=== PATIENT | male | born 1945 | race Caucasian/White ===

== ENCOUNTER 2022-05-13 07:47 | Emergency (ER) | payer MEDICARE ==
[~2022-05-13] VITALS: Ht 175.3 cm; Wt 80.3 kg
[2022-05-13] MEDS ORDERED: Prozac40 MG PO (08:32)
[2022-05-13] MEDS ORDERED: Lisinopril2.5 MG PO (08:32)
[2022-05-13 08:59] LABS: BASOPHILS ABSOLUTE AUTO 0.03 K/mm3 (0.00-0.23); BASOPHILS PERCENT AUTO 0 % (0-2); EOSINOPHILS ABSOLUTE AUTO 0.04 K/mm3 (0.00-0.68); EOSINOPHILS PERCENT AUTO 0 % (0-6); Hematocrit 44.2 % (37.0-53.0); Hemoglobin 14.6 g/dL (13.5-17.5); IMMATURE GRAN ABSOLUTE AUTO 0.04 K/mm3 (0.00-0.10); IMMATURE GRAN PERCENT AUTO 0 % (0-1); LYMPHOCYTES ABSOLUTE AUTO 0.77 K/mm3 (0.84-5.20); LYMPHOCYTES PERCENT AUTO 7 % (21-46); MONOCYTES ABSOLUTE AUTO 0.49 K/mm3 (0.16-1.47); MONOCYTES PERCENT AUTO 4 % (4-13); Mean Corpuscular HGB 31.9 pg (26.0-34.0); Mean Corpuscular Volume 97 fL (80-100); Mean Platelet Volume 10.4 fL (9.1-12.4); NEUTROPHILS PERCENT AUTO 88 % (41-73); Platelet Count 187 K/mm3 (150-400); RDW Coefficient Variation 13.2 % (11.7-14.2); RDW Standard Deviation 47.1 fL (35.1-46.3); Red Blood Cell Count 4.58 M/mm3 (4.30-5.90); White Blood Cell Count 11.27 K/mm3 (4.00-11.30)
[2022-05-13 09:23] LABS: Albumin, Blood 4.2 g/dL (3.4-5.0); Albumin/Globulin Ratio 1.1 (0.8-1.8); Bilirubin, Total 0.3 mg/dL (0.1-1.0); Bun/Creatinine Ratio 19.8 (12.0-20.0); Calcium, Blood 9.9 mg/dL (8.5-10.1); Creatinine, Blood 1.77 mg/dL (0.60-1.20); Globulin, Blood 3.8 g/dL (2.2-4.0); Potassium, Blood 4.9 mmol/L (3.5-5.5)
[2022-05-13 09:54] LABS: Source, Urine Clean Catch
[2022-05-13 09:58] LABS: Appearance, Urine Clear (Clear); Bilirubin, Urine Neg (Neg); Blood, Urine Neg (Neg); Color, Urine Yellow (P-Yellow); Glucose Qualitative, Urine Neg (Neg); Ketones, Urine Neg (Neg); Leukocyte Esterase, Urine Neg (Neg); Nitrite, Urine Neg (Neg); Protein, Urine 1+ (Neg); Urobilinogen, Urine NORM (Normal)
== END 2022-05-13 11:18 | disposition home or self-care (01) ==
LOC: ER 07:47
PROVIDERS: Physician Assistant
DX: K59.00 Constipation, unspecified (principal); I10 Essential (primary) hypertension; F32.A Depression, unspecified; Z79.899 Other long term (current) drug therapy; Z98.84 Bariatric surgery status
CPT/HCPCS: 74177; 80053; 83690; 85025; A9270; Q9967

== ENCOUNTER → 2024-04-10 | Outpatient (CLI) | payer OTHER ==
[~2024-04-10] MED LIST: Lisinopril2.5 MG PO; Prozac40 MG PO
[2024-04-10 11:51] LABS: Source, Urine Clean Catch
[2024-04-10 12:01] LABS: Appearance, Urine Clear (Clear); Bilirubin, Urine Neg (Neg); Blood, Urine Neg (Neg); Color, Urine Yellow (P-Yellow); Glucose Qualitative, Urine Neg (Normal); Ketones, Urine Neg (Neg); Leukocyte Esterase, Urine Neg (Neg); Nitrite, Urine Neg (Neg); Protein, Urine Trace (Neg); Urobilinogen, Urine NORM (Normal)
[2024-04-10 12:31] LABS: Albumin, Blood 3.6 g/dL (3.4-5.0); Anion Gap 17 mmol/L (6-16); Blood Urea Nitrogen 33 mg/dL (8-24); Bun/Creatinine Ratio 12.6 (12.0-20.0); CO2, Blood 19 mmol/L (21-32); Chloride, Blood 108 mmol/L (98-108); Creatinine, Blood 2.61 mg/dL (0.60-1.20); Glomerular Filtration Rate 24 (60-); Glucose, Blood 91 mg/dL (70-99); Phosphorus, Blood 3.7 mg/dL (2.5-4.9); Potassium, Blood 4.3 mmol/L (3.5-5.5); Sodium, Blood 140 mmol/L (136-145)
== END ==
LOC: LAB SHORT 11:49 → LAB 11:49
PROVIDERS: Hospitalist
DX: N18.32 Chronic kidney disease, stage 3b (principal)
CPT/HCPCS: 36415; 80069

== ENCOUNTER 2024-12-10 18:28 | Inpatient (IN) | payer OTHER ==
[~2024-12-10] VITALS: Ht 177.8 cm; Wt 68.0 kg
[2024-12-10] MEDS ORDERED: PRED FORTE5 M1 LEFTEYE (19:54)
[2024-12-10] MEDS ORDERED: CALCIUM GLUC IN NACL, ISO-OSM 100 ML IV ONE (19:55)
[2024-12-10] MEDS ORDERED: Sodium Bicarb 8.4% Inj 150 MEQ in Dextrose 5% 1,000 ML IV SCH ×2 (20:05→22:55)
[2024-12-10 20:21] LABS: Base Excess Venous -27.4 mmol/L; Bicarbonate Venous 6.6 mmol/L (24.0-30.0); PCO2 Venous 15.8 mmHg (38-42)
[2024-12-10] MEDS ORDERED: Sodium Zirconium Cyclosilicate 10 GM Packet PO ONE (20:40)
[2024-12-10] MEDS ORDERED: Dextrose 50% 50 ML Syringe IV ONE (20:40)
[2024-12-10] MEDS ORDERED: Dextrose 50% 50 ML Vial IV ONE (20:45)
[2024-12-10] MEDS ORDERED: Insulin Regular 100 Unit/ML 1ML Dose IV ONE (20:45)
[2024-12-10] MEDS ORDERED: Lidocaine 2% Jelly Uro-Jet UR ONE (21:00)
[2024-12-10] MEDS ORDERED: FentaNYL Citrate 50 MCG/ML 2 ML Injection IV ONE (21:00)
[2024-12-10 21:03] LABS: Bun/Creatinine Ratio 10.9 (12.0-20.0); Calcium, Blood 7.6 mg/dL (8.5-10.1); Creatinine, Blood 14.7 mg/dL (0.60-1.20); Potassium, Blood 7.1 mmol/L (3.5-5.5)
[2024-12-10] MEDS ORDERED: FLU VACC TS2024-25(6MOS UP)/PF 45 MCG/0.5 ML SYRINGE IM ONE (22:45)
[2024-12-10] MEDS ORDERED: Ondansetron HCl 2 MG / ML 2ML Vial IV PRN (22:45)
[2024-12-11] VITALS (42 sets, daily range): BP systolic 95–129; BP diastolic 59–93
[2024-12-11 02:33] LABS: BASOPHILS ABSOLUTE AUTO 0.01 K/mm3 (0.00-0.23); BASOPHILS PERCENT AUTO 0 % (0-2); EOSINOPHILS ABSOLUTE AUTO 0.02 K/mm3 (0.00-0.68); EOSINOPHILS PERCENT AUTO 0 % (0-6); Hematocrit 23.7 % (37.0-53.0); Hemoglobin 8.2 g/dL (13.5-17.5); IMMATURE GRAN ABSOLUTE AUTO 0.04 K/mm3 (0.00-0.10); IMMATURE GRAN PERCENT AUTO 1 % (0-1); LYMPHOCYTES ABSOLUTE AUTO 0.58 K/mm3 (0.84-5.20); LYMPHOCYTES PERCENT AUTO 9 % (21-46); MONOCYTES ABSOLUTE AUTO 0.48 K/mm3 (0.16-1.47); MONOCYTES PERCENT AUTO 7 % (4-13); Mean Corpuscular HGB 32.9 pg (26.0-34.0); Mean Corpuscular HGB Conc 34.6 g/dL (31.5-36.5); Mean Corpuscular Volume 95 fL (80-100); Mean Platelet Volume 11.7 fL (9.1-12.4); NEUTROPHILS ABSOLUTE AUTO 5.68 K/mm3 (1.96-9.15); NEUTROPHILS PERCENT AUTO 84 % (41-73); Platelet Count 169 K/mm3 (150-400); Red Blood Cell Count 2.49 M/mm3 (4.30-5.90); White Blood Cell Count 6.81 K/mm3 (4.00-11.30)
[2024-12-11] MEDS ORDERED: Sodium Zirconium Cyclosilicate 10 GM Packet PO SCH (02:59)
[2024-12-11 03:32] LABS: Magnesium, Blood 1.7 mg/dL (1.6-2.4)
[2024-12-11 03:44] LABS: Source, Urine Straight Cath
--- NOTE | 2024-12-11 03:49 | NUR ---
ER ADMIT TO ICU 15: PT ARRIVED TO THE UNIT @ 2326. PT ADMITTED FOR AN ASHTYN. PT TRANSFERRED VIA GURNEY AND MOVED TO BED VIA SLIDE SHEET. PT A&O X 4 ON ARRIVAL, PLEASANT AND COOPERATIVE WITH CARE. PT IS ON RA, SPO2 98<, LUNGS CLEAR T/O AND DENIES SOB. PT SR ON MONOTOR WITH HR 80'S, SBP 120'S, AND DENIES CHEST PAIN/PRESSURE AT THIS TIME. PT PIV TO RAC AND LFA; AFTER ARRIVAL LFA PIV FOUND TO BE INFILTRATED AND REMOVED. PT HAD TRAMATIC CATHERTER INSERTION ATTEMPS IN ER; URETHRA BLOODY AND PAINFUL. PERICARE COMPLETED. BLADDER SCAN PERFORMED WITH 106 MLS NOTED. PT ABLE TO VOID IN URINAL A FEW HOURS AFTER ARRIVAL. PT GILBERT, CALL FOR HELP APPROPRIATELY. COCCYX REDDENED BUT REMAINS BLANCHABLE. BICARB GTT @ 150 MLS/HR. BED LOWERED, CALL LIGHT IN REACH.
[2024-12-11 04:14] LABS: Anion Gap 26 mmol/L (3-11); Blood Urea Nitrogen 153 mg/dL (8-24); Bun/Creatinine Ratio 10.5 (12.0-20.0); CO2, Blood 5 mmol/L (21-32); Calcium, Blood 7.7 mg/dL (8.5-10.1); Chloride, Blood 114 mmol/L (98-108); Glomerular Filtration Rate 3 (60-); Glucose, Blood 93 mg/dL (70-99); Phosphorus, Blood 13.2 mg/dL (2.5-4.9); Potassium, Blood 5.8 mmol/L (3.5-5.5); Sodium, Blood 139 mmol/L (136-145)
[2024-12-11 05:05] LABS: Appearance, Urine Hazy (Clear); Bilirubin, Urine Neg (Neg); Blood, Urine 5+ (Neg); Color, Urine Yellow (P-Yellow); Glucose Qualitative, Urine Neg (Neg); Ketones, Urine Neg (Neg); Leukocyte Esterase, Urine 2+ (Neg); Nitrite, Urine Neg (Neg); Protein, Urine 3+ (Neg); Specific Gravity, Urine 1.015 (1.003-1.022); Urobilinogen, Urine NORM (Normal)
[2024-12-11 05:23] LABS: Bacteria Few /hpf; Red Blood Cells, Urine TNTC /hpf (0-2); Squamous Epithelial Cells Few /hpf (Few); White Blood Cells, Urine 25-50 /hpf (0-5)
[2024-12-11 05:25] LABS: Renal Epithelial Rare /hpf (0-Rare)
--- NOTE | 2024-12-11 06:28 | NUR ---
SHIFT SUMMARY: NO ACUTE CHANGES OVERNIGHT; VSS THROUGHOUT THE SHIFT. CRITICAL LAB VALUES CALLED TO DR. HILL; SEE DOCUMENTATION. SODIUM BICARB GTT INCREASED TO 250 MLS/HR. PT USED URINAL ONCE THIS SHIFT WITH 75 MLS OUTPUT. MOST RECENT BLADDER SCAN SHOWED 163 MLS. PT ATTEMPTED TO USE BEDPAN, UNSUCCESSFUL; OBSERVED TO FATIGUE EASILY WITH TURNING. BED LOWERED, CALL LIGHT IN REACH.
[2024-12-11] MEDS ORDERED: Lisinopril 5 MG Tab PO SCH (09:00)
[2024-12-11] MEDS ORDERED: Heparin Sodium 5000 Units/ML 1ML MDV SC SCH (09:00)
[2024-12-11] MEDS ORDERED: Lactobacil 2-S.Thermo-Bifido 1 1 Cap PO SCH (09:00)
[2024-12-11] MEDS ORDERED: FLUoxetine HCL 20 MG CAP PO SCH (09:00)
[2024-12-11 09:12] LABS: Calcium, Ionized (POC) 0.91 mmol/L (1.10-1.46); Chloride (POC) 109 mmol/L (98-108); Creatinine (POC) 15.1 mg/dL (0.8-1.3); Glucose (ISTAT POC) 132 mg/dL (70-99); Hemoglobin (POC) 7.8 g/dL (13.5-17.5); Potassium (POC) 4.5 mmol/L (3.5-5.5); Sodium (POC) 137 mmol/L (135-148); Total CO2 (POC) 12 mmol/L (21-32)
[2024-12-11] MEDS ORDERED: PrednisoLONE 1% Opth Susp 5 ML LEFTEYE SCH (10:00)
[2024-12-11 11:14] LABS: Albumin, Blood 2.8 g/dL (3.4-5.0); Anion Gap 29 mmol/L (3-11); Blood Urea Nitrogen 157 mg/dL (8-24); Bun/Creatinine Ratio 10.6 (12.0-20.0); CO2, Blood 8 mmol/L (21-32); Calcium, Blood 7.7 mg/dL (8.5-10.1); Chloride, Blood 108 mmol/L (98-108); Glomerular Filtration Rate 3 (60-); Glucose, Blood 126 mg/dL (70-99); Potassium, Blood 4.9 mmol/L (3.5-5.5); Sodium, Blood 140 mmol/L (136-145)
[2024-12-11] MEDS ORDERED: CefTRIAXone Sodium 1,000 MG in NS 100 ML IV SCH (12:00)
--- NOTE | 2024-12-11 15:05 | NUR ---
INITIAL PALLIATIVE CARE VISIT: SPOKE TO DR. RAMAN FRICKERTRON CHECKER PRIOR TO VISIT WITH . DR. RAMAN WILL ATTEMPT TO REVERSE KIDNEY DAMAGE WITH MEDICATIONS FOR A COUPLE OF DAYS. PER DR. RAMAN PATIENT DOES NOT WISH TO BE ON DIALYSIS. MADE VISIT OUTSIDE PATIENT ROOM WITH [facility]. PT WAS SLEEPING AND DID NOT WANT HIM INTERRUPTED. PT AND HAD JUST HAD VISIT WITH DR. RAMAN. PROVIDED DETAILS OF PATIENT ONSET OF DECLINE STATING HE STOPPED TAKING HIS MEDICATIONS ABOUT A WEEK AGO AND SHE THINKS HE WAS FORGETTING TO TAKE THEM. THEN A COUPLE OF DAYS AGO HE STOPPED EATING AND DRINKING VERY LITTLE AND WAS COMPLAINING OF CRAMPS IN HIS LEGS. SHE THOUGHT HE WAS GETTING CRAMPS AND NOT DOING WELL BECAUSE HE WAS HAVING WITHDRAWALS FROM STOPPING HIS MEDICATION PROZAC. RELAYED WHAT DR. RAMAN HAD ALREADY INFORMED THIS RN OF DECIDING ULTIMATELY IF [facility] NEEDS DIALYSIS THEY WILL NOT PURSUE THIS OPTION. SHE WAS TEARFUL WITH INTERACTION, BUT APPEARED TO BE ACCEPTING OF THIS NEWS STATING THEY HAVE HAD A WONDERFUL 45 YEARS OF MARRIAGE. SHE STATES SHE HAS MANY FRIENDS AND HER SISTER IS A NURSE AT THE [employer] WHO WILL BE GOOD SUPPORT FOR HER. THIS RN TOLD [facility] WILL CONTINUE TO FOLLOW AND BE ADDITIONAL SUPPORT TO PROVIDE RESOURCES NEEDED DEPENDING ON HOW [facility] DOES. PROVIDED EMOTIONAL SUPPORT. OFFERED SUPERVISOR/PORT DIRECTOR TO MAKE VISIT AND SHE STATES IT IS NOT NECESSARY AT THIS TIME. DISCUSSED CODE STATUS WITH . EXPLAINED DIFFERENCES. SHE STATES SHE WANT HIM TO BE AFULL CODE AND CPR AND SHORT TERM INTUBATION IF NECESSARY BUT IF HE HAS TO GO ON DIALYSIS THEN SHE WILL CHANGE TO DNR. UPDATED PRIMARY RN ABOUT ABOVE CONVERSATION.
[2024-12-11] MEDS ORDERED: FentaNYL Citrate 50 MCG/ML 2 ML Injection IV PRN (17:00)
[2024-12-11] MEDS ORDERED: Acetaminophen 325 MG TABLET PO PRN (17:05)
[2024-12-11] MEDS ORDERED: NS 1,000 ML IV SCH (17:40)
--- NOTE | 2024-12-11 18:26 | NUR ---
SUMMARY PT A/O X4. OOB TO BSC THEN TO THE RECLINER FOR A COUPLE HOURS. WEAK GAIT. PT WAS HAVING PAIN IN LOW BACK THIS AFTERNOON. MEDICATED WITH FENTANYL AND TYLENOL WITH GOOD RESULTS. PT HAS NOT VOIDED THIS EVENING AND UNABLE TO WHEN PROMPTED, BLADDER SCAN SHOWED 458ML. NOTIFIED DR. JACOBS WHO STATES HE IS NOT WORRIED UNTIL PT HAS 1L IN BLADDER. PT HAD SEVERAL PALMER ATTEMPTS ON NOC SHIFT. ORDERED FLOMAX FOR TONIGHT. PT AND HAD A MEETING WITH DR. JACOBS AND PALLIATIVE CARE RN. PT DOES NOT WANT DIALYSIS. SUPPORTIVE FAMILY AT BEDSIDE. NO SIGN OF DISTRESS.
[2024-12-11 20:58] LABS: Bun/Creatinine Ratio 10.8 (12.0-20.0); Calcium, Blood 6.5 mg/dL (8.5-10.1); Potassium, Blood 4.1 mmol/L (3.5-5.5)
[2024-12-11] MEDS ORDERED: Tamsulosin HCl 0.4 MG Cap PO SCH (21:00)
--- NOTE | 2024-12-11 21:08 | NUR ---
ASSUMPTION OF CARE CARE OF PT ASSUMED AT 1900 FOLLOWING REPORT FROM DAY RN. PT SLEEPING, AWAKES TO VOICE, ALERT AND ORIENTED, URSULA. WEAK. SBA. PAIN IN LOWER BACK TREATED WITH TYLENOL AND FENTANYL Q 3. PT INTERMITTENTLY TREMULOUS/ANXIOUS DURING EXAMINE. I GOT HIM AT OF BED TO STAND AND ATTEMPT URINATION, AND WHEN BACK IN BED, PT FELT MORE CALM. SINUS RHYTHM 70-90 AND STABLE BP, MAP AROND 80. 100% SAT ON RA. NO CHEST PAIN, SOB, AB PAIN. NO URINATION YET SINCE ADMISSION. MULTIPLE UNSUCCESSFUL PALMER ATTEMPTS RESULTED IN BLOODY URETHRAL EXUDATE. NS INFUSING AT 125. FLOMAX WAS RECENTLY ORDERED AND ADMINISTERED, HOPEFULLY THIS WILL HELP. PT HAS CALL ERLIN WHITTAKER.
--- NOTE | 2024-12-11 22:11 | NUR ---
ASSUMPTION OF CARE AT 2133 PT ARRIVED TO [facility] VIA BED FROM ICU.TRANSFERRED TO PCU BED WITH TRANSFER SHEET.PT A&OX4,DENIES PAIN.PT COLD AND SHIVERING,GIVEN A WARM BLANKET,ROOM TEMP INCREASED.PT HAD 50ML OF CLEAR COLORED EMESIS,PRN ZOFRAN GIVEN.ROOM ORIENTATION COMPLETED,NS AT 125ML/HR RESTARTED.CALL LIGHT AND PT'S ITEMS WITHIN REACH.PT DENIES NEEDS,WILL CONTINUE TO MONITOR.
[2024-12-12] VITALS (17 sets, daily range): BP systolic 84–115; BP diastolic 56–72
--- NOTE | 2024-12-12 01:21 | NUR ---
CARE NOTE PT COMPLAINED OF SUPRAPUBIC PAIN WITH PALPATION,REPORTED THAT HE FEELS THE URGE TO URINATE.PT ASSISTED TO THE BEDSIDE TO USE THE URINAL.PT STOOD AT THE BEDSIDE WITH STAFF ASSIST BUT WAS NOT ABLE TO URINATE.BLADDER SCANNER REVEALED >610ML IN BLADDER,PT REPORTED SEVERE BACK PAIN.PRN FENANYL IV GIVEN.PT REPORTS PAIN RELIEF.ATTEMPTED TO STRAIGHT CATH PT WITH A 14FR CAUDE CATHETER BUT NO URINE, INSTEAD 30ML OF BLOOD DRAINED INTO THE STRAIGHT CATH BAG.PT ALSO BLED AROUND THE CATHETER.STRAIGHT CATH CATHETER REMOVED.PT GAVE THIS NURSE PERMISSION TO ATTEMPT TO PLACE A PALMER CATHETER IF THAT WOULD RELIEVE THE PAIN.14FR INSERTED BUT NO URINE OUTPUT.THE RESIDENT CNC SUPERVISOR NOTIFIED. STATES THAT HE WILL DISCUSS WITH THE ATTENDING DOCTOR. STATES THAT THERE IS NOTHING THAT CAN BE DONE NOW HE NEEDS A SUPRAPUBIC CATHETER. ALSO SAID THAT WILL BE ROUNDING IN THE MORNING AND WILL SEE PT.WILL CONTINUE TO MONITOR AND MANAGE PAIN.
[2024-12-12 05:24] LABS: Hematocrit 19.8 % (37.0-53.0); Mean Corpuscular HGB 32.7 pg (26.0-34.0); Mean Corpuscular HGB Conc 35.4 g/dL (31.5-36.5); Mean Corpuscular Volume 93 fL (80-100); Mean Platelet Volume 11.8 fL (9.1-12.4); Platelet Count 151 K/mm3 (150-400); RDW Coefficient Variation 13.5 % (11.7-14.2); RDW Standard Deviation 45.4 fL (35.1-46.3); Red Blood Cell Count 2.14 M/mm3 (4.30-5.90)
[2024-12-12 06:24] LABS: Albumin, Blood 2.7 g/dL (3.4-5.0); Bilirubin, Total 0.3 mg/dL (0.1-1.0); Globulin, Blood 2.8 g/dL (2.2-4.0); Total Protein, Blood 5.5 g/dL (6.4-8.2)
[2024-12-12 06:26] LABS: Bun/Creatinine Ratio 10.8 (12.0-20.0); Creatinine, Blood 14.3 mg/dL (0.60-1.20)
--- NOTE | 2024-12-12 06:53 | NUR ---
SHIFT SUMMARY PT SLEEPING THIS MORNING,DENIES PAIN,DENIES NEEDS.PT HAD TWO EPISODES OF EMESIS,BOWEL MOVEMENT X2.NO URINE OUTPUT.CALL LIGHT AND PT'S ITEMS WITHIN REACH.WILL CONTINUE TO MONITOR.
[2024-12-12] MEDS ORDERED: HYDROmorphone HCl/Pf 1MG SYR IV ONE ×3 (09:00→09:45)
[2024-12-12] MEDS ORDERED: LORazepam 2 MG/ML 1ML Injection IV ONE (09:10)
--- NOTE | 2024-12-12 10:30 | NUR ---
AM NOTE: PATIENT ALERT AND ORIENTED. FORGETFUL AND DROWSY. PATIENT COMPLAINING OF 6/10 BACK/BLADDER PAIN UPON SHIFT START. ABLE TO MOVE ALL EXTREMITIES. OVERALL VERY WEAK. PERRLA. RECENT CATARACT SURGERY. 1-2 PERSON ASSIST WITH FWW AND GAIT BELT. Q2 TURNS IN BED. TELE SHOWING SR WITH HR 70-80'S. SBP 100-110'S. DENIES CHEST PAIN/PRESSURE/PALPITATIONS. PPP. SCATTERED BRUISING. IV FLUIDS INFUSING PER EMAR. ON ROOM AIR, LUNG SOUNDS CLEAR AND DIM IN BASES. DENIES SOB/COUGH. EVEN AND UNLABORED RESPIRTATIONS. BOWEL TONES PRESENT. ABDOMIN DISTENDED AND TENDER OVER BLADDER. PATIENT HAS NOT BEEN ABLE TO URINATE AND MULTIPLE PALMER CATH ATTEMPTS HAVE BEEN MADE. DR. ZACARIAS TO BEDSIDE THIS AM AND THIS RN PRESENT. DR. ZACARIAS ABLE TO PREFORM STRAIGHT CATH TO DRAIN BLADDER, 725 URINE DRAINED. URINE MIXED WITH BLOOD. DR. BURDICK CONSULTED FOR SUPRAPUBIC CATH PLACEMENT. ATTENDS IN PLACE. ONE EPISODE OF EMESIS THIS AM. NPO AT THIS TIME FOR SUPRA PUBIC PLACEMENT. PATIENT MISSING TEETH, IN PROGRESS TO OBTAIN DENTURES. SKIN OVERALL PALE WITH SCATTERED BRUISING. NONBLANCHABLE REDNESS ON COCCYX. MEPILEX IN PLACE AND Q2 TURNING. TACEY AT BESIDE AND UPDATED ON PLAN OF CARE BY DR. FIGUEREDO AND DR. LITTLE, THIS RN PRESENT. CALL LIGHT IN REACH.
[2024-12-12] MEDS ORDERED: Metoclopramide HCl 5MG / ML 2ML Vial IV PRN (14:30)
--- NOTE | 2024-12-12 14:43 | NUR ---
PATIENT NAUSEAOUS THIS AFTERNOON WITH MULTIPLE EPISODES OF EMESIS. ZOFRAN ADMINISTERED WITH NO RELIEF. THIS RN PLACED CALL TO DR. ZACARIAS AND DR. LITTLE TO UPDATE ON EMESIS. ORDERS FOR REGLAN. PATIENT ALSO COMPLAINS OF 6/10 BACK PAIN. MEDICATED PER EMAR FOR PAIN AND NAUSEA. FAMILY REMAINS AT BEDSIDE.
--- NOTE | 2024-12-12 15:43 | NUR ---
AFLUTTER: TELE SHOWING CONVERSION FROM SINUS RHYTHM TO AFLUTTER. PATIENT NONSYMPTOMATIC RESTING IN BED COMFORTABLY. HR UP TO 110'S WHEN IN AFLUTTER. BLOOD PRESSURE CYCLING Q15MIN AT THIS TIME. 108/62 WITH A MAP OF 75. SWITCHING BACK AND FORTH FROM AFLUTTER TO SINUS RHYTHM. DR. LITTLE CALLED TO UPDATE ON RHYTHM CHANGE. [facility] HERE TO PRACTICAL NURSE PATIENT AT THIS TIME.
[2024-12-12] MEDS ORDERED: Midazolam HCl 1MG / ML 2ML Vial ONE (15:50)
[2024-12-12] MEDS ORDERED: FentaNYL Citrate 50 MCG/ML 2 ML Injection ONE (15:51)
[2024-12-12] MEDS ORDERED: NS 250 ML IV ONE (15:52)
[2024-12-12] MEDS ORDERED: NS 250 ML IV PRN (16:00)
--- NOTE | 2024-12-12 17:50 | NUR ---
PATIENT BACK FROM [facility]ART CENTER AT 1645. VITAL SIGNS STABLE AND POST OP VITALS IN PROGRESS. SUPRAPUBIC CATH DRAINING CLEAR/YELLOW URINE. PATIENT REMAINS IN AFLUTTER WITH HR 90-130'S. DENIES CARDIAC SYMPTOMS. PATIENT SLEEPY BUT DENIES PAIN. DENIES DINNER AT THIS TIME. REMAINS AT BEDSIDE. PLAN FOR 1 UNIT OF PRBC. CALL LIGHT IN REACH.
--- NOTE | 2024-12-12 18:23 | NUR ---
SHIFT SUMMARY: PATIENT REMAINS ALERT AND ORIENTED, VERY SLEEPY. BLOOD INFUSING AT THIS TIME. SBP TRENDING IN THE 90'S WITH MAPS ABOVE 65. T MAX 99.5. BACK PAIN IMPROVED WITH SUPRAPUBIC CATH PLACEMENT AND REPOSITIONING. AT BEDSIDE REPORTS PATIENT SMOKING MARIJUANA AT HOME TO HELP COPE WITH CHRONIC BACK PAIN. SUPRAPUBIC CATH REMAINS IN PLACE DRAINING YELLOW URINE. URINE SAMPLE SENT TO LAB. SUPRAPUBIC CATH SITE HAS SCANT BRIGHT RED DRAINAGE ON DRESSING. Q2 TURNS CONTINUE. CALL LIGHT IN REACH. PATIENT DENIES NEEDS AT THIS TIME.
--- NOTE | 2024-12-12 18:41 | NUR ---
DR. JACOBS TO BEDSIDE, THIS RN AND PATIENT PRESENT FOR MD ROUNDING. PLAN TO START FLUIDS AFTER BLOOD INFUSION IS COMPLETE.
[2024-12-12] MEDS ORDERED: Sodium Bicarb 8.4% Inj 75 MEQ in Sodium Chloride 0.45% 1,000 ML IV SCH (20:00)
[2024-12-12] MEDS ORDERED: PrednisoLONE 1% Opth Susp 5 ML LEFTEYE SCH (21:00)
[2024-12-12 21:43] LABS: Hemoglobin 7.6 g/dL (13.5-17.5)
[2024-12-13] VITALS (18 sets, daily range): BP systolic 84–121; BP diastolic 54–72
[2024-12-13 03:55] LABS: Hematocrit 22.7 % (37.0-53.0); Hemoglobin 8.3 g/dL (13.5-17.5)
[2024-12-13] MEDS ORDERED: OxyCODONE HCL 5 MG TAB PO PRN ×2 (04:10→09:09)
[2024-12-13 04:40] LABS: Magnesium, Blood 1.6 mg/dL (1.6-2.4)
[2024-12-13 05:01] LABS: Albumin, Blood 2.7 g/dL (3.4-5.0); Anion Gap 26 mmol/L (3-11); Blood Urea Nitrogen 148 mg/dL (8-24); Bun/Creatinine Ratio 10.1 (12.0-20.0); CO2, Blood 12 mmol/L (21-32); Chloride, Blood 104 mmol/L (98-108); Glomerular Filtration Rate 3 (60-); Glucose, Blood 113 mg/dL (70-99); Potassium, Blood 3.6 mmol/L (3.5-5.5); Sodium, Blood 138 mmol/L (136-145)
[2024-12-13 05:02] LABS: Calcium, Blood 5.6 mg/dL (8.5-10.1); Phosphorus, Blood 12.7 mg/dL (2.5-4.9)
--- NOTE | 2024-12-13 05:07 | NUR ---
UPDATE: PT SUDDENLY C/O CHEST AND BACK PAIN. TACHYPNEIC. RHYTHM CHANGE NOTICED ON MONIOR. HR WENT FROM SR 70'S-80'S TO AFIB 130'S. EKG DONE, SHOWS AFIB. LABS DRAWN. PAIN TREATED WIH RESOLUTION OF SYMPTOMS. THIS RN NOTIFIED DR. HILL. LABS ADDED ON. TROP 92. CRITICAL LABS: CREATININE 14.6, CALCIUM 5.6, PHOS 12.7. THIS RN UPDATED DR. HILL. IONIZED CALCIUM ORDERED. PT STABLE AT THIS TIME.
--- NOTE | 2024-12-13 06:11 | NUR ---
UPDATE: THIS RN FOLLOWED UP WITH DR. HILL REGARDING PT'S IONIZED CALCIUM 0.68. RECOMMENDS DEFERRING TO NEPHROLOGY THIS AM. PT IS STABLE WITH NO FURHTER EKG CHANGES.
[2024-12-13] MEDS ORDERED: NS 1,000 ML IV SCH (09:05)
[2024-12-13] MEDS ORDERED: Calcium Gluconate 10% 100 MG/ML INJ IV SCH (09:05)
[2024-12-13] MEDS ORDERED: CALCIUM GLUC IN NACL, ISO-OSM 100 ML IV SCH (09:30)
--- NOTE | 2024-12-13 10:00 | NUR ---
AM NOTE: PATIENT WAKES TO CARES. ALERT TO SELF, PLACE AND SOME DETAILS ON SITUATION. PATIENT WAKES MORE HE BECOMES MORE CLEAR. COMPLAINS OF 10/10 BACK PAIN THIS AM, MEDICATED PER EMAR WITH SOME RELIEF. FOLLOWING COMMANDS. PERRLA. DENIES NUMBNESS/TINGLING. Q2 TURNS AND NEEDED. TELE SHOWING SINUS RHYTHM WITH HR 70-80'S. SBP 90-100'S. DENIES CHEST PAIN/PRESSURE/PALPITATIONS. IV FLUIDS INFUSING PER EMAR. PPP. NO EDEMA NOTED. ON ROOM AIR SATING ABOVE 95%. LUNG SOUNDS CLEAR AND DIM IN BASES. NO COUGH NOTED. EVEN AND UNLABORED RESPIRTATIONS. BOWEL TONES PRESENT. POOR APPEATITE. DRINKING SMALL AMOUNTS OF NEPHRO SHAKES. ATTENDS IN PLACE. SUPRAPUBIC CATH IN PLACE DRAINING SMALL AMOUNTS OF CLEAR/YELLOW URINE. SCANT BLOODY DRAINAGE ON SUPRAPUBIC CATH DRESSING. INTERMIT NAUSEA WITH EMESIS. MEDICATED PER EMAR. SEE CHART FOR PHOTO OF COCCYX. Q2 TURNING. MEPILEX IN PLACE FOR PROTECTION. SCATTERED BRUISING THROUGHOUT. CALL LIGHT IN REACH. [facility] CALLED AND REPORTED UPPER RESPIRATORY SYMPTOMS AND THAT SHE WOULD BE STAYING HOME TODAY, THIS RN UPDATED DR. FIGUEREDO. DR. DAMON, DR. DIXON AND DR. FIGUEREDO TO BEDSIDE THIS AM, THIS RN PRESENT FOR MD ROUNDING. THIS RN SPOKE WITH DR. JACOBS THIS AM REGARDING AM LABS, IV FLUIDS, LOKELMA, URINE OUTPUT AND PATIENT BACK PAIN.
--- NOTE | 2024-12-13 17:50 | NUR ---
SHIFT SUMMARY: PATIENT SLEEPING MOST OF SHIFT BUT WAKES TO CARES. TELE REMAINS SR WITH HR 70-80'S. ON ROOM AIR. POOR APPEATITE. PATIENT ATE 1 JELLO AND DRANK 1 NEPHRO SHAKE WELL ICE WATER THROUGHOUT SHIFT. SUPRAPUBIC CATH CONTINUES TO DRAIN CLEAR/YELLOW URINE. TOTAL URINE OUTPUT THIS SHIFT IS 200ML. NS CONTINUES AT 125ML/HR. CALCIUM GLUCONATE INFUSED. INTERMIT NAUSEA RELIEVED WITH IV REGLAN AND IV ZOFRAN. 2 EPISODES OF EMESIS. INTERMIT BACK PAIN RELIEVED WITH EMAR MEDICATIONS. Q2 TURNING AND NEEDED. CALL LIGHT IN REACH. DENIES NEEDS AT THIS TIME.
[2024-12-14] VITALS (14 sets, daily range): BP systolic 101–132; BP diastolic 61–82
[2024-12-14 03:46] LABS: Hematocrit 20.6 % (37.0-53.0); Hemoglobin 7.5 g/dL (13.5-17.5)
[2024-12-14 04:01] LABS: International Normalized Ratio 1.12; Prothrombin Time Results 11.9 Sec (9.7-11.5)
[2024-12-14 04:47] LABS: Albumin, Blood 2.5 g/dL (3.4-5.0); Anion Gap 23 mmol/L (3-11); Blood Urea Nitrogen 153 mg/dL (8-24); Bun/Creatinine Ratio 10.5 (12.0-20.0); CO2, Blood 13 mmol/L (21-32); Calcium, Blood 6.4 mg/dL (8.5-10.1); Chloride, Blood 104 mmol/L (98-108); Glomerular Filtration Rate 3 (60-); Glucose, Blood 112 mg/dL (70-99); Phosphorus, Blood 12.7 mg/dL (2.5-4.9); Potassium, Blood 3.3 mmol/L (3.5-5.5); Sodium, Blood 137 mmol/L (136-145)
--- NOTE | 2024-12-14 05:56 | NUR ---
SHIFT SUMMARY PT HAS REMAINED UNCHANGED THROUGH NIGHT. PT HAD SOME PERIODS OF PAIN AND NAUSEA MANGED BY MEDICATIONS. OTHERWISE HAS RESTED WELL THROUGH NIGHT. PT IS ALERT AND ORIENTED X 3 FORGETTING THE DATE. USES CALL LIGHT APPROPRIATELY AND ABLE TO MOVE ALL EXTREMETIES, FOLLOWING COMMANDS. PT HEART RATE HAS REMAINED SR TO AFLUTTER, WHICH HAS BEEN NORMAL FOR CURRENT HOSPITAL STAY. ON ROOM AIR WITH CLEAR DIM LUNG SOUNDS. PT IS ON RENAL DIET, NO BOWEL MOVEMENT THIS EVENING. PT HAS SUPRAPUBIC CATH THAT HAS BEEN DRAINING TO GRAVITY. RECIEVING IV FLUID AT TKO. WILL CONTINUE TO MONITOR UNTIL REPORT PASSED TO DAY SHIFT TEAM.
--- NOTE | 2024-12-14 10:06 | NUR ---
AM NOTE: PATIENT ALERT AND ORIENTED X3. VERY SLEEPY. WAKES TO CARES. ABLE TO MAKE NEEDS KNOWN AND USING THE CALL LIGHT. OVERALL VERY WEAK. ABLE TO TURN SELF IN BED. ONE PERSON ASSIST WITH WALKER TO BSC. TELE SHOWING SR WITH HR 70-80'S. DENIES CHEST PAIN/PRESSURE/PALPITATIONS. EDEMA NOTED IN BILATERAL UPPER EXTREMITIES AND HANDS. IV FLUIDS INFUSING PER EMAR. ON ROOM AIR SATING ABOVE 95%. LUNG SOUNDS REMAIN CLEAR. DENIES SOB. EVEN AND UNLABORED RESPIRATIONS. BOWEL TONES PRESENT. ATTENDS IN PLACE. SUPRA PUBIC CATH IN PLACE DRAINING YELLOW URINE TO GRAVITY. SCANT RED DRAINAGE ON SP DRESSING. NPO AT THIS TIME FOR POSSIBLE DIALYSIS CATH PLACEMENT. INTERMIT NAUSEA CONTINUES. SKIN PALE, WARM, SCATTERED BRUISING, RED COCCYX. SEE CHART FOR PHOTOS. MEPILEX OVER COCCYX FOR PROTECTION. Q2 TURNING. CALL LIGHT IN REACH. PATIENT WANTING DIALYSIS. CONSULT FOR INTERVENTIONAL RADIOLOGY CALLED IN BY THIS RN THIS AM. NPO AT THIS TIME. THIS RN UPDATED DR. JACOBS VIA PHONE ON URINE OUTPUT, EDEMA TO UPPER EXTREMITIES, IR CONSULT BEING PLACED FOR DIALYSIS CATH TODAY AND CONFIRMED IV FLUIDS TO CONTINUE (NS AT 125 ML/HR). THIS RN PRESENT FOR DR. CASSANDRA VERDE AT BEDSIDE. NO NEW ORDERS FOR THIS RN TO PLACE.
[2024-12-14 11:12] LABS: Hematocrit 19.5 % (37.0-53.0)
--- NOTE | 2024-12-14 12:05 | NUR ---
CALL TO DR. ZACARIAS AT 1130 TO REPORT HGB 7.0, HCT 19.5, AND MIRCO URINE CULTURE RESULTS. NO NEW ORDER FOR THIS RN TO PLACE. [facility] CALLED BY THIS RN TO CHECK ON DIALYSIS CATH PLACEMENT, TIME STILL PENDING. AFTERNOON VITAL SIGNS STABLE. FLUIDS CONTINUE PER EMAR. PATIENT REMAINS NPO. CALL LIGHT IN REACH.
--- NOTE | 2024-12-14 14:22 | NUR ---
STILL PENDING DIALYSIS CATH PLACEMENT. DR. JACOBS UPDATED ON PENDING CATH AND LABS (K AND HGB). NO NEW ORDERS FOR THIS RN TO PLACE.
--- NOTE | 2024-12-14 14:53 | NUR ---
DR. TRUJILLO CALLED BY THIS RN TO DISCUSS PATIENT LABS. PLAN FOR 1 UNIT OF PRBC AT THIS TIME. PATIENT UPDATED. VITAL SIGNS STABLE. DENIES PAIN AT THIS TIME. CALL LIGHT IN REACH. REMAINS NPO.
--- NOTE | 2024-12-14 15:01 | NUR ---
[facility]ENTER PLACED CALL TO ASSOCIATE DRAFTER. PLAN FOR DIALYSIS CATH TO BE PLACED TOMORROW MORNING. DR. JACOBS AND DR. TRUJILLO UPDATED. PLAN FOR NPO AFTER MIDNIGHT.
--- NOTE | 2024-12-14 16:46 | NUR ---
DR. JACOBS BY TO SEE PATIENT, THIS RN AT BEDSIDE FOR PROVIDER ROUNDING. NO NEW ORDERS FOR THIS RN TO PLACE.
[2024-12-14] MEDS ORDERED: Epoetin Alfa-EPBX 10,000 Unit/ML 1ML Vial SC SCH (17:15)
--- NOTE | 2024-12-14 18:04 | NUR ---
SHIFT SUMMARY: PATIENT UP IN RECLINER AT THIS TIME. BLOOD TRANSFUSION INFUSING. PLAN FOR DIALYSIS CATH IN AM. TACEY UPDATED ON PLAN OF CARE. CONTINUES TO HAVE FEVER AND RESPIRATORY SYMPTOMS AT HOME. VITAL SIGNS STABLE. ON ROOM AIR. TELE SHOWING SR WITH HR 70'S. DENIES CHEST PAIN/PRESSURE/PALPITATIONS. SUPRAPUBIC CATH CONTINUES TO DRAIN CLEAR/YELLOW URINE. INCREASED APPEATITE. CALL LIGHT IN REACH. DENIES NEEDS AT THIS TIME.
[2024-12-14 22:30] LABS: Hematocrit 22.9 % (37.0-53.0); Hemoglobin 8.1 g/dL (13.5-17.5)
[2024-12-15] VITALS (20 sets, daily range): BP systolic 95–176; BP diastolic 53–95
--- NOTE | 2024-12-15 04:59 | NUR ---
SHIFT SUMMARY PT REMAINS A&OX4. VSS ON RA >100%. PT ENDORSES LIGHTHEADEDNESS AND DIZZY UPON MOVEMENT. X2A W/ FWW WITH MOVEMENT. PT HAVING LOOSE STOOLS THROUGHOUT NIGHT. CONTINUES TO C/O CHRONIC BACK PAIN, PRNs GIVEN PER DEC. NS CONTINUOUSLY RUNNING @ 80CC/HR. NEW PIV PLACED. PT CONTINUES TO HAVE EDEMETOUS EXTREMITIES, PLACED ON PILLOWS. PT NPO SINCE MIDNIGHT FOR PERM CATH PLACEMENT IN AM. SUPRAPUBIC CONTINUES TO DRAIN ADEQUATELY AND SITE IS CDI. NO FURTHER QUESTIONS OR CONCERNS AT THIS TIME. WILL CONTINUE WITH PLAN OF CARE AND REPORT TO ONCOMING DAY NURSE.
[2024-12-15 05:33] LABS: Hematocrit 24.4 % (37.0-53.0); Hemoglobin 8.8 g/dL (13.5-17.5); Mean Corpuscular HGB 32.8 pg (26.0-34.0); Mean Corpuscular HGB Conc 36.1 g/dL (31.5-36.5); Mean Corpuscular Volume 91 fL (80-100); Mean Platelet Volume 11.4 fL (9.1-12.4); Platelet Count 151 K/mm3 (150-400); RDW Coefficient Variation 14.7 % (11.7-14.2); Red Blood Cell Count 2.68 M/mm3 (4.30-5.90)
[2024-12-15 06:08] LABS: Iron Serum 35 ug/dL (65-175); Percent Saturation 27.8 % (20.0-50.0); Total Iron Binding Capacity 126 ug/dL (250-450)
[2024-12-15 06:40] LABS: Albumin, Blood 2.2 g/dL (3.4-5.0); Anion Gap 23 mmol/L (3-11); Blood Urea Nitrogen 150 mg/dL (8-24); CO2, Blood 12 mmol/L (21-32); Calcium, Blood 5.5 mg/dL (8.5-10.1); Chloride, Blood 106 mmol/L (98-108); Glomerular Filtration Rate 3 (60-); Glucose, Blood 90 mg/dL (70-99); Phosphorus, Blood 12.9 mg/dL (2.5-4.9); Potassium, Blood 3.1 mmol/L (3.5-5.5); Sodium, Blood 138 mmol/L (136-145)
[2024-12-15] MEDS ORDERED: CefTRIAXone 1000 MG Vial ONE (07:51)
[2024-12-15] MEDS ORDERED: CALCIUM GLUC IN NACL, ISO-OSM 100 ML IV ONE (08:40)
[2024-12-15] MEDS ORDERED: FentaNYL Citrate 50 MCG/ML 2 ML Injection ONE (13:12)
[2024-12-15] MEDS ORDERED: Midazolam HCl 1MG / ML 2ML Vial ONE (13:12)
[2024-12-15] MEDS ORDERED: NS 100 ML IV ONE (13:12)
[2024-12-15 17:53] LABS: HEPATITIS B SURFACE ANTIBODY <3.10 IU/L
[2024-12-15 18:01] LABS: HEPATITIS A ANTIBODY, IGM Negative (Negative); HEPATITIS B CORE ANTIBODY, IGM Negative (Negative); HEPATITIS B SURFACE ANTIGEN Negative (Negative); HEPATITIS C AB CIA INTERP Negative (Negative); HEPATITIS C ANTIBODY CIA INDEX 0.06 IV
--- NOTE | 2024-12-15 18:08 | NUR ---
SHIFT SUMMARY PT IS ALERT AND ORIENTED TO SELF, PLACE, SITUATION. HE IS ABLE TO MAKE HIS NEEDS KNOWN AND HAS BEEN A 1-PERSON ASSIST TO CHAIR. VSS. HR NOTED TO CONVERT FROM A-FLUTTER TO NSR AT APPROX. 1700, DR. TRUJILLO MADE AWARE. HE REPORTED NAUSEA THIS AM THAT HAS RESOLVED. HE HAS DENIED FEELINGS OF CHEST PAIN/PRESSURE, SOB, LIGHTHEADEDNESS/DIZZINESS. PERMA CATH WAS PLACED DURING SHIFT, CATHETER SITE IS FREE FROM REDNESS/BLEEDING AND DRESSING IS D/C/I. SP CATHETER IS IN PLACE AND DRAINING TO GRAVITY. PT WENT TO HEMODIALYSIS DURING SHIFT. HE WAS ABLE TO EAT DINNER AND APPEARED TO TOLERATE PO INTAKE WELL. CALL LIGHT IS W/IN REACH.
[2024-12-16] VITALS (19 sets, daily range): BP systolic 111–133; BP diastolic 65–87
[2024-12-16 04:47] LABS: Hematocrit 22.9 % (37.0-53.0); Hemoglobin 8.2 g/dL (13.5-17.5); Mean Corpuscular HGB Conc 35.8 g/dL (31.5-36.5); Mean Corpuscular Volume 90 fL (80-100); Mean Platelet Volume 10.8 fL (9.1-12.4); Platelet Count 159 K/mm3 (150-400); RDW Coefficient Variation 14.6 % (11.7-14.2); Red Blood Cell Count 2.56 M/mm3 (4.30-5.90); White Blood Cell Count 5.15 K/mm3 (4.00-11.30)
[2024-12-16 05:47] LABS: Albumin, Blood 2.1 g/dL (3.4-5.0); Anion Gap 18 mmol/L (3-11); Blood Urea Nitrogen 91 mg/dL (8-24); Bun/Creatinine Ratio 8.8 (12.0-20.0); CO2, Blood 20 mmol/L (21-32); Calcium, Blood 6.4 mg/dL (8.5-10.1); Chloride, Blood 104 mmol/L (98-108); Glomerular Filtration Rate 5 (60-); Glucose, Blood 90 mg/dL (70-99); Sodium, Blood 139 mmol/L (136-145)
[2024-12-16 05:50] LABS: Phosphorus, Blood 8.5 mg/dL (2.5-4.9)
--- NOTE | 2024-12-16 06:19 | NUR ---
SHIFT SUMMARY PT REMAINS A&OX4. VSS ON RA. PT HAVING LIQUID BMs THROUGHOUT NIGHT. CONCERN FOR CDIFF HOWEVER HAS NOT HAD ANOTHER BM SINCE SUSPICION TO TEST. PT HAS HAD NO NAUSEA THROUGHOUT SHIFT HOWEVER STILL DIZZY AT TIMES WITH MOVEMENT. PT HAVING MINIMAL PAIN, TYLENOL GIVEN WITH GOOD EFFECT. BED ALARM REMAINS ON D/T FORGETFULLNESS WHEN AWAKING FROM SLEEP. NO FURTHER QUESTIONS OR CONCERNS AT THIS TIME. WILL CONTINUE WITH PLAN OF CARE AND REPORT TO ONCOMING NURSE.
[2024-12-16] MEDS ORDERED: Anticoagulant Sod Citrate Soln 3 ML SYR INJ PRN (07:45)
[2024-12-16 08:43] LABS: ALBUMIN 2.92 g/dL (3.75-5.01); ALPHA 1 GLOBULIN 0.34 g/dL (0.19-0.46); ALPHA 2 GLOBULIN 0.67 g/dL (0.48-1.05); BETA GLOBULIN 0.58 g/dL (0.48-1.10); IMMUNOFIXATION REFLEX IFE Done; TOTAL PROTEIN,SERUM 5.1 g/dL (6.3-8.2)
[2024-12-16 08:45] LABS: IMMUNOGLOBULIN A 210 mg/dL (68-408); IMMUNOGLOBULIN G 626 mg/dL (768-1632); IMMUNOGLOBULIN M 49 mg/dL (35-263)
--- NOTE | 2024-12-16 17:57 | NUR ---
SHIFT SUMMARY PT A&Ox4, CALLS AND COMMUNICATES NEEDS APPROPRIATELY. BP STABLE, SINUS 80's, DENIES CP/PRESSURE. SpO2> 92% RA, DENIES SOB. 1 ASSIST WITH FWW. CONTINENT OF BM, ONE EPISODE OF LOOSE STOOL. SUPRAPUBIC CATH WNL, DRAINING CLEAR YELLOW URINE TO GRAVITY. NO C/O PAIN. EDEMATOUS IN EXTREMITIES, BUE>BLE. PERMACATH WNL. NO OTHER EVENTS, WILL REPORT TO ONCOMING RN.
[2024-12-16 20:55] LABS: QUANTIFERON MITOGEN MINUS NIL 3.15 IU/mL; QUANTIFERON NIL 0.04 IU/mL
[2024-12-17] VITALS (21 sets, daily range): BP systolic 83–151; BP diastolic 60–83
[2024-12-17 05:32] LABS: Hematocrit 23.9 % (37.0-53.0); Hemoglobin 8.6 g/dL (13.5-17.5); Mean Corpuscular HGB 33.1 pg (26.0-34.0); Mean Corpuscular Volume 92 fL (80-100); Mean Platelet Volume 11.9 fL (9.1-12.4); Platelet Count 207 K/mm3 (150-400); RDW Coefficient Variation 15.2 % (11.7-14.2); RDW Standard Deviation 51.1 fL (35.1-46.3); White Blood Cell Count 4.74 K/mm3 (4.00-11.30)
--- NOTE | 2024-12-17 05:36 | NUR ---
SHIFT SUMMARY PT REMAINS A&OX4. VSS ON RA >97%. UNEVENTFUL NIGHT. NO ACUTE CHANGES. PT DID STATE HE FEELS INCREASINGLY WEAK THIS EVENING. WHEN WALKING TO BATHROOM PT HAS DIFFICULTIES WITH BALANCE AND REQUIRED X2 NURSES FOR ASSISTANCE WITH FWW. PT CONTINUES TO HAVE LIQUID STOOL. BED ALARM IN PLACE D/T CONFUSION WHEN FIRST AWAKENING. VP [employer] AND [employer] AT BEDSIDE AT START OF SHIFT AND REQUESTED TO D/C FLUIDS AT THIS TIME AND POTENTIALLY REMOVE FLUID DURING DIALYSIS NEXT TIME. NO FURTHER QUESTIONS OR CONCERNS AT THIS TIME. WILL CONTINUE WITH PLAN OF CARE AND REPORT TO ONCOMING DAY NURSE.
[2024-12-17 05:57] LABS: Albumin, Blood 2.1 g/dL (3.4-5.0); Anion Gap 16 mmol/L (3-11); Blood Urea Nitrogen 54 mg/dL (8-24); Bun/Creatinine Ratio 7.3 (12.0-20.0); CO2, Blood 22 mmol/L (21-32); Calcium, Blood 6.9 mg/dL (8.5-10.1); Chloride, Blood 103 mmol/L (98-108); Creatinine, Blood 7.42 mg/dL (0.60-1.20); Glomerular Filtration Rate 7 (60-); Glucose, Blood 77 mg/dL (70-99); Phosphorus, Blood 5.8 mg/dL (2.5-4.9); Potassium, Blood 3.9 mmol/L (3.5-5.5); Sodium, Blood 137 mmol/L (136-145)
[2024-12-17] MEDS ORDERED: Calcium Acetate 667 MG Gel Cap PO SCH (08:30)
[2024-12-17] MEDS ORDERED: Vitamin B Cmplx/Vit C/Folic Ac 1 Tab PO SCH (09:00)
[2024-12-17] MEDS ORDERED: Calcitriol 0.25 MCG Cap PO SCH (09:00)
--- NOTE | 2024-12-17 13:07 | NUR ---
UPDATE NOTIFIED PHYSICIAN OF PT HAVING MORE THAN 3 LOOSE STOOL THAT ARE ORANGE/JELLY WITHIN 24 HOURS. NO NEW ORDERS AT THIS TIME.
[2024-12-17 15:15] LABS: HBV CORE ANTIBODIES,TOTAL Negative (Negative)
--- NOTE | 2024-12-17 16:00 | NUR ---
UPDATE PT CONVERTED TO AFIB 130's WHILE WORKING WITH PHYSICAL THERAPY. ASYMPTOMATIC, VSS. HR 100-110's AT REST. NOTIFIED PROVIDER, NO ORDERS AT THIS TIME.
--- NOTE | 2024-12-17 17:46 | NUR ---
SHIFT SUMMARY SEE PREVIOUS NOTES. PT A&Ox4, CALLS AND COMMUNICATES NEEDS APPROPRIATELY. BP STABLE, SINUS 80's AT START OF SHIFT, AFIB 110's AT THIS TIME, DENIES CP/PRESSURE. SpO2> 92% RA, DENIES SOB. 1 ASSIST WITH FWW. CONTINENT OF BM, ONE EPISODE OF LOOSE STOOL. SUPRAPUBIC CATH WNL, DRAINING CLEAR YELLOW URINE TO GRAVITY. NO C/O PAIN. EDEMATOUS IN EXTREMITIES, BUE>BLE. PERMACATH WNL. NO OTHER EVENTS, WILL REPORT TO ONCOMING RN.
--- NOTE | 2024-12-18 00:05 | NUR ---
TRANSFER PATIENT MEDICAL WITH TELE STATUS. REPORT GIVEN TO MEDICAL FLOOR NURSE. PATIENT TO BE TRANSFERRED TO [facility]. PATIENT ALERT, ORIENTED x4. ABLE TO MAKE NEEDS KNOWN. BP STABLE. ALFUTTER ON TELE. ON RA WITH SPO2 >90%. SUPRAPUBIC CATH IN PLACE. PATIENT 1 PERSON ASSIST WITH WALKER. PATIENT TO BE TRANSFERRD WITH ALL BELONGINGS AND CHART.
[2024-12-18 00:30] VITALS: BP 136/90
--- NOTE | 2024-12-18 01:15 | NUR ---
SHIFT SUMMARY/TRANSFER TO MEDICAL FLOOR NOTE: REPORT RECEIVED FROM AIR AND WATER TESTERLYNN RODRIGUEZ. PT ARRIVED TO MEDICAL FLOOR @0025. PT IS A/O X4, VERY PLEASANT, ABLE TO MAKE HIS NEEDS KNOWN. PT IS SBA WITH FWW. RIGHT CHEST WALL HAS A NEW PERMACATH. IV AT LFA.SALINE LOCKED. TELE:A-FIB @108. HX WEAKNESS IN RIGHT SHOULDER D/T DISLOCATION, RECENT. PER REPORT, PT HAS HX OF LOOSE STOOLS. PT HAD DIALYSIS YESTERDAY, NEW DIALYSIS PT. PT HAS A NEW SUPRAPUBIC CATHETER. URINE SAMPLE PENDING. BED AT THE LOWEST POSITION, CALL LIGHT W/I REACH. NO ACUTE DISTRESS NOTED/REPORTED AT THIS TIME.
[2024-12-18 03:14] LABS: Source, Urine Suprapubic Cath
[2024-12-18 03:17] VITALS: BP 115/69
[2024-12-18 03:19] LABS: Appearance, Urine Hazy (Clear); Bilirubin, Urine Neg (Neg); Blood, Urine 5+ (Neg); Color, Urine Yellow (P-Yellow); Glucose Qualitative, Urine 1+ (Neg); Ketones, Urine Neg (Neg); Leukocyte Esterase, Urine 1+ (Neg); Nitrite, Urine Neg (Neg); Protein, Urine 3+ (Neg); Urobilinogen, Urine NORM (Normal)
[2024-12-18 03:31] LABS: Bacteria Mod /hpf; Red Blood Cells, Urine 50-100 /hpf (0-2); Squamous Epithelial Cells Few /hpf (Few); White Blood Cells, Urine 0-2 /hpf (0-5)
[2024-12-18 05:25] LABS: Hemoglobin 8.5 g/dL (13.5-17.5); Mean Corpuscular HGB 31.6 pg (26.0-34.0); Mean Corpuscular Volume 93 fL (80-100); Platelet Count 161 K/mm3 (150-400); RDW Coefficient Variation 15.2 % (11.7-14.2); RDW Standard Deviation 51.4 fL (35.1-46.3); Red Blood Cell Count 2.69 M/mm3 (4.30-5.90); White Blood Cell Count 4.64 K/mm3 (4.00-11.30)
[2024-12-18 05:54] LABS: Albumin, Blood 2.2 g/dL (3.4-5.0); Anion Gap 14 mmol/L (3-11); Blood Urea Nitrogen 32 mg/dL (8-24); Bun/Creatinine Ratio 5.9 (12.0-20.0); CO2, Blood 25 mmol/L (21-32); Calcium, Blood 7.8 mg/dL (8.5-10.1); Chloride, Blood 104 mmol/L (98-108); Creatinine, Blood 5.43 mg/dL (0.60-1.20); Glomerular Filtration Rate 10 (60-); Glucose, Blood 94 mg/dL (70-99); Phosphorus, Blood 3.7 mg/dL (2.5-4.9); Potassium, Blood 3.3 mmol/L (3.5-5.5); Sodium, Blood 140 mmol/L (136-145)
--- NOTE | 2024-12-18 07:44 | NUR ---
INFORMED MD OF POTASSIUM LEVELS, HAD TO LEAVE VOICEMAIL.
[2024-12-18 07:52] VITALS: BP 120/95
[2024-12-18] MEDS ORDERED: Heparin Sodium,Porcine 5,000 UNIT/0.5 ML SDV SC SCH (09:00)
[2024-12-18] MEDS ORDERED: Heparin Sodium 5000 Units/ML 1ML MDV SC SCH (09:00)
[2024-12-18] MEDS ORDERED: Apixaban 5 MG Tab PO SCH (13:00)
--- NOTE | 2024-12-18 16:41 | NUR ---
SHIFT SUMMARY PT AOX3, COOPERATIVE, ABLE TO MAKE NEEDS KNOWN. PT IS SBA IN ROOM USING FWW. SUPRAPUBIC CATHETER PATENT AND DRAINING THE GRAVITY. PERMA CATH IN UPPER RIGHT CHEST INTACT. NO COMPLAINTS OF PAIN FOR THIS SHIFT. DIALYSIS TOMORROW. BED IN LOWEST POSITION, CALL LIGHT WITHIN REACH.
[2024-12-18 17:06] VITALS: BP 131/82
[2024-12-18 19:25] VITALS: BP 133/66
[2024-12-19] VITALS (13 sets, daily range): BP systolic 99–141; BP diastolic 66–96
[2024-12-19 05:21] LABS: Hematocrit 22.6 % (37.0-53.0); Hemoglobin 7.5 g/dL (13.5-17.5); Mean Corpuscular HGB 31.6 pg (26.0-34.0); Mean Corpuscular HGB Conc 33.2 g/dL (31.5-36.5); Mean Corpuscular Volume 95 fL (80-100); Mean Platelet Volume 10.6 fL (9.1-12.4); Platelet Count 151 K/mm3 (150-400); RDW Coefficient Variation 15.3 % (11.7-14.2); RDW Standard Deviation 53.1 fL (35.1-46.3); Red Blood Cell Count 2.37 M/mm3 (4.30-5.90); White Blood Cell Count 4.67 K/mm3 (4.00-11.30)
--- NOTE | 2024-12-19 05:43 | NUR ---
SHIFT SUMMARY PT A&Ox3 AND PLEASANT. NO C/O PAIN. ON RA. SUPRAPUBIC CATH DRAINING SLIGHTLY PINK URINE. BLADDER SCAN SHOWED 0ml AT 0400. BLE EDEMA NOTED. SOCK REMOVED DURING THE NIGHT.NEW IV PLACED IN LEFT UPPER ARM. VSS. NO EVENTS ON TELE. BED ALARM ON. BED IN LOWEST POSITION AND CALL LIGHT IN REACH.
[2024-12-19 06:03] LABS: Albumin, Blood 2.3 g/dL (3.4-5.0); Anion Gap 13 mmol/L (3-11); Blood Urea Nitrogen 39 mg/dL (8-24); Bun/Creatinine Ratio 5.6 (12.0-20.0); CO2, Blood 24 mmol/L (21-32); Calcium, Blood 7.4 mg/dL (8.5-10.1); Chloride, Blood 106 mmol/L (98-108); Creatinine, Blood 6.92 mg/dL (0.60-1.20); Glomerular Filtration Rate 8 (60-); Glucose, Blood 89 mg/dL (70-99); Phosphorus, Blood 4.9 mg/dL (2.5-4.9); Sodium, Blood 140 mmol/L (136-145)
--- NOTE | 2024-12-19 17:24 | NUR ---
SHIFT SUMMARY MR MULTANI IS ORIENTATED TO SELF, HOSPITAL, BUT NOT NAME OF HOSPITAL OR TOWN, TO 2024 BUT NOT MONTH. APPROPRIATE CONVERSATION. HE HAD DIALYSIS THIS MORNING AND SLEPT AFTER RETURNING. UP THIS AFTERNOON IN THE RECLINER. ONE PERSON ASSIST WITH WALKER AND GAIT BELT. ON TELEMETRY IN , NO CALLS FROM D[employer]ITAL MEDIA REPRESENTATIVE. HE ATE MOST OF HIS LUNCH AND HAD SOLID BM THIS AFTERNOON. CHAIR AND BED ALARMS USED. CALL LIGHT IN REACH.
[2024-12-20 04:25] VITALS: BP 126/85
[2024-12-20 05:11] LABS: BASOPHILS ABSOLUTE AUTO 0.01 K/mm3 (0.00-0.23); BASOPHILS PERCENT AUTO 0 % (0-2); EOSINOPHILS ABSOLUTE AUTO 0.15 K/mm3 (0.00-0.68); EOSINOPHILS PERCENT AUTO 3 % (0-6); Hematocrit 22.5 % (37.0-53.0); Hemoglobin 7.4 g/dL (13.5-17.5); Mean Corpuscular HGB 31.8 pg (26.0-34.0); Mean Corpuscular HGB Conc 32.9 g/dL (31.5-36.5); Mean Corpuscular Volume 97 fL (80-100); Mean Platelet Volume 10.8 fL (9.1-12.4); Platelet Count 160 K/mm3 (150-400); RDW Coefficient Variation 15.5 % (11.7-14.2); RDW Standard Deviation 53.4 fL (35.1-46.3); Red Blood Cell Count 2.33 M/mm3 (4.30-5.90); White Blood Cell Count 5.11 K/mm3 (4.00-11.30)
[2024-12-20 05:13] LABS: IMMATURE GRAN ABSOLUTE AUTO 0.02 K/mm3 (0.00-0.10); IMMATURE GRAN PERCENT AUTO 0 % (0-1); LYMPHOCYTES ABSOLUTE AUTO 0.76 K/mm3 (0.84-5.20); LYMPHOCYTES PERCENT AUTO 15 % (21-46); MONOCYTES PERCENT AUTO 8 % (4-13); NEUTROPHILS ABSOLUTE AUTO 3.77 K/mm3 (1.96-9.15); NEUTROPHILS PERCENT AUTO 74 % (41-73)
--- NOTE | 2024-12-20 06:10 | NUR ---
SHIFT SUMMARY PT A&Ox3 AND PLEASANT. SOME SLIGHT CONFUSION AT NIGHT BUT EASILY REORIENTED. NO C/O PAIN. NO ACUTE CHANGES. NO EVENTS ON TELE. SUPRAPUBIC CATH DRAINING YELLOW URINE. BED ALARM ON DURING THE NIGHT. VSS. BED IN LOWEST POSITION AND CALL LIGHT IN REACH.
[2024-12-20 06:53] LABS: BASOPHILS PERCENT MAN 0 % (0-2); EOSINOPHILS ABSOLUTE MAN 0.05 K/mm3 (0.00-0.68); EOSINOPHILS PERCENT MAN 1 % (0-6); LYMPHOCYTES % ATYPICAL MANUAL 1 % (0-0); LYMPHOCYTES ABSOLUTE MAN 0.56 K/mm3 (0.84-5.20); LYMPHOCYTES PERCENT MAN 10 % (21-46); METAMYELOCYTE ABSOLUTE MAN 0.05 K/mm3 (0.00-0.00); METAMYELOCYTE PERCENT MAN 1 % (0-0); MONOCYTES ABSOLUTE MAN 0.51 K/mm3 (0.16-1.47); MONOCYTES PERCENT MAN 10 % (4-13); NEUTROPHILS ABSOLUTE MAN 3.93 K/mm3 (1.96-9.15); SEG NEUTROPHILS PERCENT MAN 77 % (41-73); TOTAL CELLS COUNTED 100
[2024-12-20 07:30] VITALS: BP 135/82
[2024-12-20 12:00] VITALS: BP 125/85
--- NOTE | 2024-12-20 15:03 | NUR ---
SHIFT SUMMARY MR MULTANI IS SITTING UP IN HIS CHAIR, AT HIS SIDE. HE IS CHATTING APPROPRIATELY, SMILING, DENIES PAIN. HE HAS WALKED TO THE BATHROOM WITH STEADY GAIT WITH THE WALKER. HE AND HIS VERBALISED UNDERSTANDING OF SUPRAPUBIC CATHETER CARE. NO DIALYSIS TODAY. NO SOB. ON TELEMETRY IN SR, NO CALLS FROM SALVATION[facility]. CALL LIGHT IN REACH.
[2024-12-20 15:27] VITALS: BP 144/87
[2024-12-20 20:02] VITALS: BP 125/83
[2024-12-21] VITALS (17 sets, daily range): BP systolic 106–139; BP diastolic 63–92
--- NOTE | 2024-12-21 04:16 | NUR ---
SHIFT SUMMARY PATIENT HAS BEEN SLEEPING INTERMITTANTLY THROUGHOUT THE NIGHT. HE HAD AN EPISODE OF CONFUSION DURING THE NIGHT BUT IS ALERT AND ORIENTED X4 THIS MORNING. SUPRAPUBIC CATHETER IS PATENT. PATIENT HAS HIS CALL LIGHT WITHIN REACH AND HIS BED ALARM IS SET. SAFETY PRECAUTIIONS ARE BEING MAINTAINED.
[2024-12-21 05:27] LABS: Hematocrit 24.8 % (37.0-53.0); Hemoglobin 8.1 g/dL (13.5-17.5)
[2024-12-21 05:58] LABS: Albumin, Blood 2.5 g/dL (3.4-5.0); Anion Gap 11 mmol/L (3-11); Blood Urea Nitrogen 44 mg/dL (8-24); Bun/Creatinine Ratio 6.5 (12.0-20.0); CO2, Blood 26 mmol/L (21-32); Calcium, Blood 6.8 mg/dL (8.5-10.1); Chloride, Blood 104 mmol/L (98-108); Creatinine, Blood 6.81 mg/dL (0.60-1.20); Glomerular Filtration Rate 8 (60-); Glucose, Blood 88 mg/dL (70-99); Phosphorus, Blood 4.2 mg/dL (2.5-4.9); Potassium, Blood 3.2 mmol/L (3.5-5.5); Sodium, Blood 138 mmol/L (136-145)
[2024-12-21] MEDS ORDERED: Potassium Chloride 10 Meq Tablet SA PO ONE (07:00)
[2024-12-21] MEDS ORDERED: CALC.25 PO (11:52)
[2024-12-21] MEDS ORDERED: ELIQUIS2.5 MG PO (11:52)
[2024-12-21] MEDS ORDERED: Calcium Acetat667 MG PO (11:53)
[2024-12-21] MEDS ORDERED: [UNRECOGNIZED DRUG - CODE] SC (11:53)
[2024-12-21] MEDS ORDERED: Flomax0.4 MG PO (11:54)
--- NOTE | 2024-12-21 14:12 | NUR ---
DISCHARGE SUMMARY PT DISCHARGED HOME WITH HH. APPOINTMENT SET UP AT [facility], [place] FOR START OF DIALYSIS ON 12/23/24 @ 0900. REVIEWED NEW MEDICATIONS AND DISCAHRGE PACKET WITH PT, NEW ORDERS SENT TO [email or web address]. FWW SENT HOME WITH PT. IV REMOVED BY WILLIE, SITE APPEARS WNL. PT WHEELED DOWN TO PERSONAL VEHICLE AND ABLE TO STAND AND GET IN TRUCK WITHOUT DIFFICULTY.
== END 2024-12-21 14:05 | disposition home health service (06) | DRG 682 ==
LOC: ER 18:28 → ERHOLD 22:43 → ICUE 22:43 → PCU 22:43 → MEDS 22:43 → ICUE 23:25 → PCU 12-11 21:34 → MEDS 12-18 00:40
PROVIDERS: Emergency Medicine; Family Medicine; Hospitalist; Internal Medicine; Registered Nurse; Student in an Organized Health Care Education/Training Program; ADMIT Student in an Organized Health Care Education/Training Program
PROC: 5A1D70Z Performance of Urinary Filtration, Intermittent, Less than 6 Hours Per Day (ICD-10-PCS; principal; 2024-12-10)
DX: N17.9 Acute kidney failure, unspecified (principal); J96.21 Acute and chronic respiratory failure with hypoxia; J96.22 Acute and chronic respiratory failure with hypercapnia; E87.20 Acidosis, unspecified; I12.0 Hypertensive chronic kidney disease with stage 5 chronic kidney disease or end stage renal disease; N39.0 Urinary tract infection, site not specified; I48.92 Unspecified atrial flutter; R33.8 Other retention of urine; N40.1 Benign prostatic hyperplasia with lower urinary tract symptoms; D63.1 Anemia in chronic kidney disease; F32.A Depression, unspecified; N18.6 End stage renal disease; E87.5 Hyperkalemia; E83.39 Other disorders of phosphorus metabolism; I48.0 Paroxysmal atrial fibrillation; Z99.2 Dependence on renal dialysis; Z98.84 Bariatric surgery status; Z98.890 Other specified postprocedural states; Z79.899 Other long term (current) drug therapy
CPT/HCPCS: 36415; 36430; 51102; 71046; 74176; 76937; 77002; 80047; 80048; 80053; 80069; 80074; 81001; 82330; 82550; 82570; 82784; 82803; 82947; 83521; 83540; 83550; 83735; 84100; 84132; 84155; 84156; 84165; 84300; 84484; 85014; 85018; 85025; 85027; 85610; 86334; 86480; 86704; 86850; 86900; 86901; 86923; 87086; 90656; 93005; 93010; 93306; 94762; 96365; 96366; 96375; 97116; 97161; 97165; 97535; 99152; 99153; 99285-25; A9270; C1729; C1750; C1769; C1894; J0612; J0696; J1171; J1644; J1815; J2060; J2250; J2405; J2765; J3010; J7030; J7050; J7070; J7799; P9016; Q5106; Q9967

== ENCOUNTER 2025-02-10 13:23 | Emergency (ER) | payer OTHER ==
[~2025-02-10] VITALS: Ht 177.8 cm; Wt 66.2 kg
[~2025-02-10 13:23] MED LIST changes: +CALC.25 PO; +Calcium Acetat667 MG PO; +ELIQUIS2.5 MG PO; +Flomax0.4 MG PO; +PRED FORTE5 M1 LEFTEYE; +[UNRECOGNIZED DRUG - CODE] SC
[2025-02-10 14:28] LABS: BASOPHILS ABSOLUTE AUTO 0.02 K/mm3 (0.00-0.23); BASOPHILS PERCENT AUTO 0 % (0-2); EOSINOPHILS ABSOLUTE AUTO 0.08 K/mm3 (0.00-0.68); EOSINOPHILS PERCENT AUTO 1 % (0-6); Hemoglobin 7.3 g/dL (13.5-17.5); IMMATURE GRAN ABSOLUTE AUTO 0.02 K/mm3 (0.00-0.10); IMMATURE GRAN PERCENT AUTO 0 % (0-1); LYMPHOCYTES ABSOLUTE AUTO 1.29 K/mm3 (0.84-5.20); LYMPHOCYTES PERCENT AUTO 21 % (21-46); MONOCYTES PERCENT AUTO 8 % (4-13); Mean Corpuscular HGB 33.8 pg (26.0-34.0); Mean Corpuscular HGB Conc 31.7 g/dL (31.5-36.5); Mean Corpuscular Volume 107 fL (80-100); NEUTROPHILS ABSOLUTE AUTO 4.37 K/mm3 (1.96-9.15); NEUTROPHILS PERCENT AUTO 70 % (41-73); Platelet Count 232 K/mm3 (150-400); RDW Coefficient Variation 21.7 % (11.7-14.2); RDW Standard Deviation 82.4 fL (35.1-46.3); Red Blood Cell Count 2.16 M/mm3 (4.30-5.90); White Blood Cell Count 6.28 K/mm3 (4.00-11.30)
[2025-02-10 14:43] LABS: International Normalized Ratio 1.05; Prothrombin Time Results 11.2 Sec (9.7-11.5)
[2025-02-10 14:51] LABS: Albumin, Blood 3.2 g/dL (3.4-5.0); Albumin/Globulin Ratio 0.9 (0.8-1.8); Bilirubin, Total 0.3 mg/dL (0.1-1.0); Bun/Creatinine Ratio 8.9 (12.0-20.0); Calcium, Blood 8.3 mg/dL (8.5-10.1); Creatinine, Blood 3.93 mg/dL (0.60-1.20); Globulin, Blood 3.6 g/dL (2.2-4.0); Potassium, Blood 3.3 mmol/L (3.5-5.5); Total Protein, Blood 6.8 g/dL (6.4-8.2)
[2025-02-10] MEDS ORDERED: Potassium Chloride 20 MEQ TabCR PO ONE (17:00)
[2025-02-10 17:30] VITALS: BP 120/67
== END 2025-02-10 17:48 | disposition home or self-care (01) ==
LOC: ER 13:23
PROVIDERS: Student in an Organized Health Care Education/Training Program
DX: S83.91XA Sprain of unspecified site of right knee, initial encounter (principal); D63.1 Anemia in chronic kidney disease; M17.11 Unilateral primary osteoarthritis, right knee; E87.6 Hypokalemia; I12.9 Hypertensive chronic kidney disease with stage 1 through stage 4 chronic kidney disease, or unspecified chronic kidney disease; N18.9 Chronic kidney disease, unspecified; Z79.899 Other long term (current) drug therapy; Z79.891 Long term (current) use of opiate analgesic; Z79.890 Hormone replacement therapy; Z79.51 Long term (current) use of inhaled steroids; Z79.52 Long term (current) use of systemic steroids; Z79.83 Long term (current) use of bisphosphonates; Z79.82 Long term (current) use of aspirin; Z79.01 Long term (current) use of anticoagulants
CPT/HCPCS: 72100; 73502; 73560-RT; 80053; 85025; 85610; 85730; 99284-25; A9270

== ENCOUNTER 2025-06-20 16:29 | Emergency (ER) | payer OTHER ==
[~2025-06-20] VITALS: Ht 177.8 cm; Wt 72.6 kg
[2025-06-20] MEDS ORDERED: Lidocaine 2% Jelly Uro-Jet UR ONE (17:45)
[2025-06-20 17:59] LABS: BASOPHILS ABSOLUTE AUTO 0.02 K/mm3 (0.00-0.23); BASOPHILS PERCENT AUTO 0 % (0-2); EOSINOPHILS ABSOLUTE AUTO 0.04 K/mm3 (0.00-0.68); EOSINOPHILS PERCENT AUTO 1 % (0-6); Hematocrit 30.4 % (37.0-53.0); Hemoglobin 9.4 g/dL (13.5-17.5); IMMATURE GRAN ABSOLUTE AUTO 0.03 K/mm3 (0.00-0.10); IMMATURE GRAN PERCENT AUTO 0 % (0-1); LYMPHOCYTES ABSOLUTE AUTO 0.73 K/mm3 (0.84-5.20); LYMPHOCYTES PERCENT AUTO 10 % (21-46); MONOCYTES ABSOLUTE AUTO 0.37 K/mm3 (0.16-1.47); MONOCYTES PERCENT AUTO 5 % (4-13); Mean Corpuscular HGB Conc 30.9 g/dL (31.5-36.5); Mean Corpuscular Volume 107 fL (80-100); NEUTROPHILS ABSOLUTE AUTO 6.04 K/mm3 (1.96-9.15); NEUTROPHILS PERCENT AUTO 84 % (41-73); NRBC ABSOLUTE 0.00 K/mm3 (0.00-0.02); NRBC Auto 0.0 /100 WBC (0.0-0.2); Platelet Count 215 K/mm3 (150-400); RDW Coefficient Variation 16.9 % (11.7-14.2); RDW Standard Deviation 64.6 fL (35.1-46.3)
[2025-06-20 18:16] LABS: Alanine Aminotransfer (ALT/SGP 17 U/L (12-78); Albumin, Blood 2.5 g/dL (3.4-5.0); Albumin/Globulin Ratio 0.8 (0.8-1.8); Anion Gap 14 mmol/L (3-11); Aspartate Aminotrans (AST/SGOT 19 U/L (12-37); Bilirubin, Total 0.3 mg/dL (0.1-1.0); Blood Urea Nitrogen 32 mg/dL (8-24); CO2, Blood 25 mmol/L (21-32); Calcium, Blood 7.6 mg/dL (8.5-10.1); Chloride, Blood 104 mmol/L (98-108); Creatinine, Blood 6.99 mg/dL (0.60-1.20); Globulin, Blood 3.0 g/dL (2.2-4.0); Glucose, Blood 98 mg/dL (70-99); Potassium, Blood 3.9 mmol/L (3.5-5.5); Sodium, Blood 139 mmol/L (136-145); Total Protein, Blood 5.5 g/dL (6.4-8.2)
[2025-06-20 18:17] LABS: Ethanol (Alcohol), Blood, Med <3 mg/dL
[2025-06-20] MEDS ORDERED: FINA5 PO (18:28)
[2025-06-20] MEDS ORDERED: FURO40 PO (18:28)
[2025-06-20 21:49] LABS: Source, Urine Foley catheter
[2025-06-20 21:52] LABS: Bilirubin, Urine Neg (Neg); Glucose Qualitative, Urine 1+ (Neg); Ketones, Urine Neg (Neg); Leukocyte Esterase, Urine 3+ (Neg); Protein, Urine 3+ (Neg); Specific Gravity, Urine 1.010 (1.003-1.022); Urobilinogen, Urine NORM (Normal)
[2025-06-20 22:02] LABS: Color, Urine Yellow (P-Yellow)
[2025-06-20 22:03] LABS: White Blood Cells, Urine TNTC /hpf (0-5)
[2025-06-20] MEDS ORDERED: CEPH500 PO (22:47)
[2025-06-20] MEDS ORDERED: Voltaren100 GM TOP (22:48)
[2025-06-20] MEDS ORDERED: CEFP200 PO (23:01)
[2025-06-20 23:20] VITALS: BP 162/108
== END 2025-06-20 23:20 | disposition home or self-care (01) ==
LOC: ER 16:29
PROVIDERS: Emergency Medicine
DX: I12.0 Hypertensive chronic kidney disease with stage 5 chronic kidney disease or end stage renal disease (principal); N18.6 End stage renal disease; D63.1 Anemia in chronic kidney disease; I48.0 Paroxysmal atrial fibrillation; N39.0 Urinary tract infection, site not specified; E87.20 Acidosis, unspecified; N40.1 Benign prostatic hyperplasia with lower urinary tract symptoms; R33.8 Other retention of urine; E83.39 Other disorders of phosphorus metabolism; F32.A Depression, unspecified; I82.612 Acute embolism and thrombosis of superficial veins of left upper extremity; Z99.2 Dependence on renal dialysis; Z91.199 Patient's noncompliance with other medical treatment and regimen due to unspecified reason; Z79.01 Long term (current) use of anticoagulants; Z87.891 Personal history of nicotine dependence; Z79.899 Other long term (current) drug therapy
CPT/HCPCS: 51702; 70450; 70496; 70498; 71045; 80053; 80320; 81001; 82947; 83605; 85025; 93005; 93010; 93971; 99285-25; A9270; Q9967

== ENCOUNTER 2025-06-22 08:23 | Inpatient (IN) | payer OTHER ==
[~2025-06-22] VITALS: Ht 175.3 cm; Wt 72.7 kg
[~2025-06-22 08:23] MED LIST changes: +CEFP200 PO; +CEPH500 PO; +FINA5 PO; +FURO40 PO; +Voltaren100 GM TOP
[2025-06-22] MEDS ORDERED: FentaNYL Citrate 50 MCG/ML 2 ML Injection IV ONE (08:40)
[2025-06-22 08:47] LABS: BASOPHILS ABSOLUTE AUTO 0.03 K/mm3 (0.00-0.23); BASOPHILS PERCENT AUTO 0 % (0-2); EOSINOPHILS ABSOLUTE AUTO 0.09 K/mm3 (0.00-0.68); EOSINOPHILS PERCENT AUTO 1 % (0-6); Hematocrit 35.4 % (37.0-53.0); Hemoglobin 11.1 g/dL (13.5-17.5); IMMATURE GRAN ABSOLUTE AUTO 0.06 K/mm3 (0.00-0.10); IMMATURE GRAN PERCENT AUTO 1 % (0-1); LYMPHOCYTES ABSOLUTE AUTO 1.60 K/mm3 (0.84-5.20); LYMPHOCYTES PERCENT AUTO 18 % (21-46); MONOCYTES ABSOLUTE AUTO 0.72 K/mm3 (0.16-1.47); MONOCYTES PERCENT AUTO 8 % (4-13); Mean Corpuscular HGB Conc 31.4 g/dL (31.5-36.5); Mean Corpuscular Volume 108 fL (80-100); NEUTROPHILS ABSOLUTE AUTO 6.22 K/mm3 (1.96-9.15); NEUTROPHILS PERCENT AUTO 71 % (41-73); NRBC ABSOLUTE 0.00 K/mm3 (0.00-0.02); NRBC Auto 0.0 /100 WBC (0.0-0.2); Platelet Count 226 K/mm3 (150-400); RDW Coefficient Variation 17.4 % (11.7-14.2); RDW Standard Deviation 67.8 fL (35.1-46.3)
[2025-06-22] MEDS ORDERED: Diazepam 5 MG / ML 2ML SYR IV ONE (09:00)
[2025-06-22 09:05] LABS: Prothrombin Time Results 12.5 Sec (9.7-11.5)
[2025-06-22 09:09] LABS: Alanine Aminotransfer (ALT/SGP 27.0 U/L (12-78); Albumin, Blood 2.7 g/dL (3.4-5.0); Albumin/Globulin Ratio 0.8 (0.8-1.8); Anion Gap 17.0 mmol/L (3-11); Aspartate Aminotrans (AST/SGOT 67.0 U/L (12-37); Bilirubin, Total 0.3 mg/dL (0.1-1.0); Blood Urea Nitrogen 29.0 mg/dL (8-24); CO2, Blood 20.0 mmol/L (21-32); Calcium, Blood 7.9 mg/dL (8.5-10.1); Chloride, Blood 106.0 mmol/L (98-108); Creatinine, Blood 6.15 mg/dL (0.60-1.20); Globulin, Blood 3.6 g/dL (2.2-4.0); Glucose, Blood 91.0 mg/dL (70-99); Magnesium, Blood 2.0 mg/dL (1.6-2.4); Potassium, Blood 5.7 mmol/L (3.5-5.5); Sodium, Blood 137.0 mmol/L (136-145); Total Protein, Blood 6.3 g/dL (6.4-8.2)
[2025-06-22] MEDS ORDERED: Morphine Sulfate 4 MG/1 ML Injection IV ONE (11:00)
[2025-06-22 14:38] VITALS: BP 161/86
[2025-06-22] MEDS ORDERED: Lidocaine 2% Jelly Uro-Jet UR ONE (14:45)
[2025-06-22] MEDS ORDERED: CEPH500 PO (14:57)
[2025-06-22] MEDS ORDERED: 8 HOUR ACETAMI650 MG PO (15:00)
[2025-06-22] MEDS ORDERED: HYDROmorphone HCl/Pf 1MG SYR IV PRN (15:55)
[2025-06-22 16:29] LABS: Hematocrit 36.5 % (37.0-53.0); Hemoglobin 11.3 g/dL (13.5-17.5); Mean Corpuscular HGB Conc 31.0 g/dL (31.5-36.5); Mean Corpuscular Volume 108 fL (80-100); NRBC ABSOLUTE 0.00 K/mm3 (0.00-0.02); NRBC Auto 0.0 /100 WBC (0.0-0.2); Platelet Count 225 K/mm3 (150-400); RDW Coefficient Variation 17.5 % (11.7-14.2); RDW Standard Deviation 69.4 fL (35.1-46.3)
[2025-06-22 16:30] LABS: Source, Urine Straight Cath
[2025-06-22 16:44] LABS: Bilirubin, Urine Neg (Neg); Color, Urine Yellow (P-Yellow); Glucose Qualitative, Urine 2+ (Neg); Ketones, Urine Neg (Neg); Leukocyte Esterase, Urine 2+ (Neg); Protein, Urine 3+ (Neg); Specific Gravity, Urine 1.015 (1.003-1.022); Urobilinogen, Urine NORM (Normal)
--- NOTE | 2025-06-22 16:50 | NUR ---
PT ADMITTED FROM ER. SLIDE SHEET USED FOR TRANSFER DUE TO RECENT FALL, WEAKNESS, PAIN, AND BEDREST ORDERS. PT A/Ox3, ABLE TO MAKE NEEDS KNOWN AND PROVIDE HX WITH ASSISTANCE FROM SPOUSE. PHOTOS TAKEN OFF ABRASIONS TO POSTERIOR HEAD AND LEFT CHEEK. CHRONIC PALMER CHANGED UPON ADMISSION. PT TOLERATED WELL WITH LIDOCAINE GEL. 10/10 BACK PAIN FROM RECENT FALL - DILAUDID 1 MG EFFECTIVE. PT AND SPOUSE ORIENTED TO ROOM AND CALL SYSTEM. PT CURRENTLY SLEEPING IN BED WITH BED IN LOWEST POSITION AND CALL IGHT IN REACH.
[2025-06-22 16:51] LABS: White Blood Cells, Urine 25-50 /hpf (0-5)
[2025-06-22 17:26] LABS: Magnesium, Blood 2.2 mg/dL (1.6-2.4)
[2025-06-22] MEDS ORDERED: Calcium Acetate 667 MG Gel Cap PO SCH (17:30)
[2025-06-22 17:35] LABS: Alanine Aminotransfer (ALT/SGP 26.0 U/L (12-78); Albumin, Blood 2.9 g/dL (3.4-5.0); Albumin/Globulin Ratio 0.9 (0.8-1.8); Anion Gap 15.0 mmol/L (3-11); Aspartate Aminotrans (AST/SGOT 39.0 U/L (12-37); Bilirubin, Total 0.3 mg/dL (0.1-1.0); Blood Urea Nitrogen 35.0 mg/dL (8-24); CO2, Blood 25.0 mmol/L (21-32); Calcium, Blood 8.7 mg/dL (8.5-10.1); Chloride, Blood 107.0 mmol/L (98-108); Creatinine, Blood 7.22 mg/dL (0.60-1.20); Globulin, Blood 3.3 g/dL (2.2-4.0); Glucose, Blood 118.0 mg/dL (70-99); Phosphorus, Blood 6.4 mg/dL (2.5-4.9); Potassium, Blood 5.0 mmol/L (3.5-5.5); Sodium, Blood 142.0 mmol/L (136-145); Thyroid Stimulating Hormone 126.0 uIU/mL (0.360-4.800); Total Protein, Blood 6.2 g/dL (6.4-8.2)
[2025-06-22 19:19] VITALS: BP 153/96
[2025-06-22 19:22] LABS: pH Blood Venous 7.28 (7.34-7.37)
[2025-06-22 23:35] VITALS: BP 167/92
[2025-06-23] VITALS (21 sets, daily range): BP systolic 121–160; BP diastolic 79–99
--- NOTE | 2025-06-23 05:34 | NUR ---
SHIFT SUMMARY 80 YR M ADMITTED ON 06/22/25. FULL CODE. NO ACUTE CHANGES THIS SHIFT. PT APPEARS TO HAVE RESTED COMFORTABLY THROUGHOUT THE NIGHT. MEDICATED ONCE FOR PAIN THIS SHIFT. HE IS A&O AND ABLE TO MAKE HIS NEEDS KNOWN. PALMER IS PATENT AND DRAINING WELL. DR. Buckner IN TO SEE PT AND INFORMED THAT PT HAD A PH OF 7.28 AND CO2 OF 47.2. DR. BUCKNER ALSO STATED THAT PT DOES NOT HAVE A BLOOD HAD BEEN EARLIER NOTED. BED IN LOW POSITION AND CALL LIGHT IN REACH.
[2025-06-23 06:32] LABS: BASOPHILS ABSOLUTE AUTO 0.03 K/mm3 (0.00-0.23); BASOPHILS PERCENT AUTO 0 % (0-2); EOSINOPHILS ABSOLUTE AUTO 0.05 K/mm3 (0.00-0.68); EOSINOPHILS PERCENT AUTO 1 % (0-6); Hematocrit 35.2 % (37.0-53.0); Hemoglobin 11.1 g/dL (13.5-17.5); IMMATURE GRAN ABSOLUTE AUTO 0.04 K/mm3 (0.00-0.10); IMMATURE GRAN PERCENT AUTO 1 % (0-1); LYMPHOCYTES ABSOLUTE AUTO 1.08 K/mm3 (0.84-5.20); LYMPHOCYTES PERCENT AUTO 13 % (21-46); MONOCYTES ABSOLUTE AUTO 0.83 K/mm3 (0.16-1.47); MONOCYTES PERCENT AUTO 10 % (4-13); Mean Corpuscular HGB Conc 31.5 g/dL (31.5-36.5); Mean Corpuscular Volume 107 fL (80-100); NEUTROPHILS ABSOLUTE AUTO 6.24 K/mm3 (1.96-9.15); NEUTROPHILS PERCENT AUTO 75 % (41-73); NRBC ABSOLUTE 0.00 K/mm3 (0.00-0.02); NRBC Auto 0.0 /100 WBC (0.0-0.2); Platelet Count 196 K/mm3 (150-400); RDW Coefficient Variation 17.4 % (11.7-14.2); RDW Standard Deviation 67.8 fL (35.1-46.3)
[2025-06-23 06:56] LABS: Alanine Aminotransfer (ALT/SGP 23.0 U/L (12-78); Albumin, Blood 2.5 g/dL (3.4-5.0); Albumin/Globulin Ratio 0.7 (0.8-1.8); Anion Gap 16.0 mmol/L (3-11); Aspartate Aminotrans (AST/SGOT 33.0 U/L (12-37); Bilirubin, Total 0.3 mg/dL (0.1-1.0); Blood Urea Nitrogen 36.0 mg/dL (8-24); CO2, Blood 21.0 mmol/L (21-32); Calcium, Blood 7.8 mg/dL (8.5-10.1); Chloride, Blood 105.0 mmol/L (98-108); Creatinine, Blood 7.48 mg/dL (0.60-1.20); Globulin, Blood 3.4 g/dL (2.2-4.0); Glucose, Blood 71.0 mg/dL (70-99); Potassium, Blood 3.8 mmol/L (3.5-5.5); Sodium, Blood 138.0 mmol/L (136-145); Total Protein, Blood 5.9 g/dL (6.4-8.2)
[2025-06-23] MEDS ORDERED: Vitamin B Cmplx/Vit C/Folic Ac 1 Tab PO SCH (09:00)
[2025-06-23] MEDS ORDERED: CefTRIAXone Sodium 1,000 MG in NS 100 ML IV SCH (09:30)
[2025-06-23] MEDS ORDERED: Cefepime HCl 1,000 MG in NS 100 ML IV SCH (13:00)
--- NOTE | 2025-06-23 17:23 | NUR ---
PT WENT TO DIALYSIS WITH 2 L REMOVED. PT HAD NO C/O PAIN NAUSEA, SOB OR CHEST PAIN. AT BEDSIDE FOR MOST OF THE DAY. PT HAD BM. PALMER CARE DONE. PT HAS NO QUESTIONS OR CONCERNS AT THIS TIME.
[2025-06-24 01:49] VITALS: BP 142/85
[2025-06-24 05:00] VITALS: BP 141/78
[2025-06-24 05:08] LABS: BASOPHILS ABSOLUTE AUTO 0.03 K/mm3 (0.00-0.23); BASOPHILS PERCENT AUTO 0 % (0-2); EOSINOPHILS ABSOLUTE AUTO 0.07 K/mm3 (0.00-0.68); EOSINOPHILS PERCENT AUTO 1 % (0-6); Hematocrit 34.7 % (37.0-53.0); Hemoglobin 11.1 g/dL (13.5-17.5); IMMATURE GRAN ABSOLUTE AUTO 0.02 K/mm3 (0.00-0.10); IMMATURE GRAN PERCENT AUTO 0 % (0-1); LYMPHOCYTES ABSOLUTE AUTO 1.14 K/mm3 (0.84-5.20); LYMPHOCYTES PERCENT AUTO 17 % (21-46); MONOCYTES ABSOLUTE AUTO 0.71 K/mm3 (0.16-1.47); MONOCYTES PERCENT AUTO 11 % (4-13); Mean Corpuscular HGB Conc 32.0 g/dL (31.5-36.5); Mean Corpuscular Volume 105 fL (80-100); NEUTROPHILS ABSOLUTE AUTO 4.73 K/mm3 (1.96-9.15); NEUTROPHILS PERCENT AUTO 71 % (41-73); NRBC ABSOLUTE 0.00 K/mm3 (0.00-0.02); NRBC Auto 0.0 /100 WBC (0.0-0.2); Platelet Count 190 K/mm3 (150-400); RDW Coefficient Variation 17.0 % (11.7-14.2); RDW Standard Deviation 65.7 fL (35.1-46.3)
[2025-06-24 05:23] LABS: Albumin, Blood 2.4 g/dL (3.4-5.0); Anion Gap 11 mmol/L (3-11); Blood Urea Nitrogen 27 mg/dL (8-24); CO2, Blood 28 mmol/L (21-32); Calcium, Blood 7.5 mg/dL (8.5-10.1); Chloride, Blood 101 mmol/L (98-108); Creatinine, Blood 5.79 mg/dL (0.60-1.20); Glucose, Blood 75 mg/dL (70-99); Phosphorus, Blood 5.0 mg/dL (2.5-4.9); Potassium, Blood 4.2 mmol/L (3.5-5.5); Sodium, Blood 136 mmol/L (136-145)
--- NOTE | 2025-06-24 05:54 | NUR ---
RAILROAD TRACK INSPECTOR SUMMARY PT A&OX4, VSS, EXCEPT ELEVATED BP. PT IS PLEASANT AND COOPERATIVE W/ CARE. PT HAS BEEN ASLEEP FOR MOST OF THE NIGHT. CHEST RISE/RESPIRATIONS NOTED. REMAINS ON BEDREST AT THIS TIME PER PROVIDER ORDERS. CHRONIC PALMER IN PLACE FOR RETENTION. PALMER WNL, FREE OF KINKS/OBSTRUCTIONS, AND DRAINING TO GRAVITY. NO C/O PAIN OR CONCERNS THIS SHIFT. BED RAILS UP X 2, BED IN LOWEST POSITION, BED WHEELS LOCKED, PERSONAL BELONGINGS AND CALL LIGHT WITHIN REACH FOR SAFETY.
[2025-06-24 07:33] VITALS: BP 134/85
--- NOTE | 2025-06-24 09:48 | NUR ---
NOTE NOTIFIED DR. DAMON THAT THE URINE CULTURE CAME BACK POSITIVE FOR ECOLI. DR. DAMON REPORTED "PT LIKELY DISCHARGE TODAY."
--- NOTE | 2025-06-24 10:58 | NUR ---
NOTE AT BEDSIDE HAS QUESTIONS REGARDING PT. IV LEAKING NO LONGER PATENT. DR. DAMON REPORTED PT CAN HAVE NO IV. WILL SWITCH ANTIBIOTIC TO ORAL." DR. DAMON REPORTED WILL STOP BY TO SEE AND GIVE UPDATE.
--- NOTE | 2025-06-24 14:19 | NUR ---
NOTE MICROBIOLOGY REPORTED POSITIVE BLOOD CULTURE ON PT. REPORTED RESULTS TO DR. DAMON.
[2025-06-24] MEDS ORDERED: Vancomycin (Pharmacy Consult) IV SCH (15:00)
[2025-06-24 15:46] VITALS: BP 151/92
[2025-06-24] MEDS ORDERED: NS 250 ML IV PRN (16:10)
[2025-06-24 19:13] VITALS: BP 124/86
--- NOTE | 2025-06-24 19:33 | NUR ---
SHIFT SUMMARY PT A&OX3-4. PT ADMITTED DUE TO TOXIC METABOLIC ENCEPHALOPATHY. PT REPORTS NO SOB/CHEST PAIN/GEN PAIN. AT BEDSIDE TODAY. PT VSS. PT HAS NEW IV IN R UA. DR. DAMON ORDERED VANCO IV. PT HAD IV VANCO TODAY. PT HAS CHRONIC PALMER CATHETER, CATH DRAINING ADEQUATE, NO DEPENDENT LOOPS. PT ON TELE. NO REPORTS NOTED. PT IN BED, BED IN LOWEST POSITION, CALL LIGHT IN REACH, WHEELS LOCKED. SIDE RAILS UP X2. PHYSICAL THERAPY REPORTED "PT SBA W [facility] AND GB, RECOMEND HOME HEALTH." NO BP ON L ARM.
[2025-06-25] VITALS (21 sets, daily range): BP systolic 131–174; BP diastolic 64–118
[2025-06-25 05:51] LABS: Hematocrit 31.7 % (37.0-53.0); Hemoglobin 10.3 g/dL (13.5-17.5)
--- NOTE | 2025-06-25 06:04 | NUR ---
SURVEYING TEACHER SUMMARY PT A&OX4, VSS, EXCEPT ELEVATED BP. PLEASANT AND COOOPERATIVE W/ CARE. HAS BEEN SLEEPING FOR MOST OF THE NIGHT. CHEST RISES/RESPIRATIONS NOTED. ON BED REST AT THIS TIME PER PROVIDER ORDERS. CHRONIC PALMER REMAINS IN PLACE FOR RETENTION. PALMER WNL, FREE OF KINKS/OBSTRUCTIONS, AND DRAINING CLEAR, YELLOW URINE TO GRAVITY. OXYCODONE ADMIN 1X THIS SHIFT BY BREAK RN FOR BACK PAIN W/ GOOD EFFECT. REMAINS ON TELE. SR AT 71. BED RAILS UP X 2, BED IN LOWEST POSITION, BED WHEELS LOCKED, PERSONAL BELONGINGS AND CALL LIGHT WITHIN REACH FOR SAFETY.
[2025-06-25 06:21] LABS: Albumin, Blood 2.4 g/dL (3.4-5.0); Anion Gap 11 mmol/L (3-11); Blood Urea Nitrogen 37 mg/dL (8-24); CO2, Blood 26 mmol/L (21-32); Calcium, Blood 7.5 mg/dL (8.5-10.1); Chloride, Blood 99 mmol/L (98-108); Creatinine, Blood 7.21 mg/dL (0.60-1.20); Glucose, Blood 78 mg/dL (70-99); Phosphorus, Blood 6.7 mg/dL (2.5-4.9); Potassium, Blood 4.3 mmol/L (3.5-5.5); Sodium, Blood 132 mmol/L (136-145); Vancomycin, Random 18.0 ug/mL
--- NOTE | 2025-06-25 08:52 | NUR ---
NOTE DIALYSIS SAID "WILL USE PERM CATH," DIALYSIS SAID HOLD LASIX AND CALCITRIOL," PT TRANSPORTED TO DIALYSIS VIA BED. VSS.
--- NOTE | 2025-06-25 12:50 | NUR ---
NOTE PT BACK IN ROOM FROM DIALYSIS. ELECTRIC TRACK SWITCH MAINTAINER REPORTED "PT GOT 2.5L OFF." NOTIFIED DR. DAMON. DR. DAMON REPORTED HOLD OFF ON GIVING LASIX, BUT GIVE AM CALCITRIOL NOW."
[2025-06-25] MEDS ORDERED: CEFP200 PO (17:35)
[2025-06-25] MEDS ORDERED: B-COMPLEX WITH1 EAC2 PO (17:36)
[2025-06-25] MEDS ORDERED: LEVE500 PO (17:37)
[2025-06-25] MEDS ORDERED: EUTHYROX50 MCG PO (17:37)
--- NOTE | 2025-06-25 18:14 | NUR ---
DISCHARGE NOTE PT A&OX4. PT ADMITTED DUE TO TOXIC METABOLIC ENCEPH. IV VANCO D/C TODAY. PT IS SBA WITH FWW. DR. MORALES REPORTED "PT CAN BE DISCHARGED TODAY." DR. DAMON ORDERED DISCHARGE W HOME HEALTH. MEDS FAXED TO PREFERED PHARMACY. WENT OVER DISCHARGE INSTRUCTIONS AND MEDS. IV D/C. TELE D/C. PT ESCORTED TO PT ENTERANCE BY SNAKER VIA WHEELCHAIR. AT BEDSIDE TODAY. PT LEFT WITH BELONGINGS. VSS. PALMER BAG CHANGED TODAY TO LEG BAG BY BREAK RN. PT REPORTS NO CHEST PAIN PAIN OR SOB. PT ON RA. DIALYSIS COMPLETED THIS AM.
== END 2025-06-25 18:08 | disposition home health service (06) | DRG 698 ==
LOC: ER 08:23 → MEDS 08:24
PROVIDERS: Student in an Organized Health Care Education/Training Program; ADMIT Family Medicine
PROC: 3E03329 Introduction of Other Anti-infective into Peripheral Vein, Percutaneous Approach (ICD-10-PCS; principal; 2025-06-23)
PROC: 5A1D70Z Performance of Urinary Filtration, Intermittent, Less than 6 Hours Per Day (ICD-10-PCS; 2025-06-23)
DX: T83.511A Infection and inflammatory reaction due to indwelling urethral catheter, initial encounter (principal); G92.8 Other toxic encephalopathy; N18.6 End stage renal disease; G93.41 Metabolic encephalopathy; T82.868A Thrombosis due to vascular prosthetic devices, implants and grafts, initial encounter; I12.0 Hypertensive chronic kidney disease with stage 5 chronic kidney disease or end stage renal disease; N30.01 Acute cystitis with hematuria; N25.81 Secondary hyperparathyroidism of renal origin; D63.1 Anemia in chronic kidney disease; N40.0 Benign prostatic hyperplasia without lower urinary tract symptoms; F32.A Depression, unspecified; K22.89 Other specified disease of esophagus; B96.20 Unspecified Escherichia coli [E. coli] as the cause of diseases classified elsewhere; E87.5 Hyperkalemia; E03.9 Hypothyroidism, unspecified; I48.0 Paroxysmal atrial fibrillation; R56.9 Unspecified convulsions; Y71.2 Prosthetic and other implants, materials and accessory cardiovascular devices associated with adverse incidents; Y73.8 Miscellaneous gastroenterology and urology devices associated with adverse incidents, not elsewhere classified; S00.03XA Contusion of scalp, initial encounter; W18.39XA Other fall on same level, initial encounter; Z99.2 Dependence on renal dialysis; Z79.01 Long term (current) use of anticoagulants; Z98.84 Bariatric surgery status
CPT/HCPCS: 36415; 51702; 70450; 71260; 72125; 74177; 80053; 80069; 80202; 81001; 82803; 83735; 84100; 84439; 84443; 84481; 85014; 85018; 85025; 85027; 85610; 85730; 86850; 86900; 86901; 87040; 87077; 87086; 87186; 93005; 93010; 96374; 96375; 97110; 97116; 97162; 99285-25; A9270; G0378; J0692; J1171; J2270; J3010; J3360; J3373; J7050; Q9967

== ENCOUNTER 2025-07-16 08:57 | Inpatient (IN) | payer OTHER ==
[~2025-07-16] VITALS: Ht 177.8 cm; Wt 81.5 kg
[~2025-07-16 08:57] MED LIST changes: +8 HOUR ACETAMI650 MG PO; +B-COMPLEX WITH1 EAC2 PO; +EUTHYROX50 MCG PO; +LEVE500 PO
[2025-07-16 11:17] LABS: BASOPHILS ABSOLUTE AUTO 0.02 K/mm3 (0.00-0.23); BASOPHILS PERCENT AUTO 0 % (0-2); EOSINOPHILS ABSOLUTE AUTO 0.01 K/mm3 (0.00-0.68); EOSINOPHILS PERCENT AUTO 0 % (0-6); Hematocrit 41.6 % (37.0-53.0); Hemoglobin 13.3 g/dL (13.5-17.5); IMMATURE GRAN ABSOLUTE AUTO 0.04 K/mm3 (0.00-0.10); IMMATURE GRAN PERCENT AUTO 1 % (0-1); LYMPHOCYTES ABSOLUTE AUTO 0.55 K/mm3 (0.84-5.20); LYMPHOCYTES PERCENT AUTO 7 % (21-46); MONOCYTES ABSOLUTE AUTO 1.05 K/mm3 (0.16-1.47); MONOCYTES PERCENT AUTO 13 % (4-13); Mean Corpuscular HGB Conc 32.0 g/dL (31.5-36.5); Mean Corpuscular Volume 102 fL (80-100); NEUTROPHILS ABSOLUTE AUTO 6.29 K/mm3 (1.96-9.15); NEUTROPHILS PERCENT AUTO 79 % (41-73); NRBC ABSOLUTE 0.00 K/mm3 (0.00-0.02); NRBC Auto 0.0 /100 WBC (0.0-0.2); Platelet Count 174 K/mm3 (150-400); RDW Coefficient Variation 15.6 % (11.7-14.2); RDW Standard Deviation 58.7 fL (35.1-46.3)
[2025-07-16 11:55] LABS: Alanine Aminotransfer (ALT/SGP 17.0 U/L (12-78); Albumin, Blood 2.9 g/dL (3.4-5.0); Albumin/Globulin Ratio 0.7 (0.8-1.8); Anion Gap 11.0 mmol/L (3-11); Aspartate Aminotrans (AST/SGOT 23.0 U/L (12-37); Bilirubin, Total 0.5 mg/dL (0.1-1.0); Blood Urea Nitrogen 42.0 mg/dL (8-24); CO2, Blood 26.0 mmol/L (21-32); Calcium, Blood 8.8 mg/dL (8.5-10.1); Chloride, Blood 99.0 mmol/L (98-108); Creatinine, Blood 7.03 mg/dL (0.60-1.20); Globulin, Blood 4.0 g/dL (2.2-4.0); Glucose, Blood 91.0 mg/dL (70-99); Potassium, Blood 5.1 mmol/L (3.5-5.5); Sodium, Blood 131.0 mmol/L (136-145); Total Protein, Blood 6.9 g/dL (6.4-8.2)
[2025-07-16] MEDS ORDERED: FLU VACC TS2025(65UP)/MF59C/PF 45 MCG/0.5 ML SYRINGE IM SCH (13:20)
[2025-07-16] MEDS ORDERED: Heparin Sodium,Porcine 5,000 UNIT/0.5 ML SDV SC SCH (14:00)
[2025-07-16] MEDS ORDERED: HYDROmorphone HCl/Pf 1MG SYR IV ONE ×2 (14:05→16:00)
[2025-07-16 15:06] VITALS: BP 173/92
[2025-07-16 16:40] VITALS: BP 150/81
[2025-07-16] MEDS ORDERED: Vancomycin (Pharmacy Consult) IV SCH (17:00)
[2025-07-16] MEDS ORDERED: HYDROmorphone HCl/Pf 1MG SYR IV PRN ×2 (17:05→18:00)
[2025-07-16] MEDS ORDERED: CefTRIAXone Sodium 2,000 MG in NS 100 ML IV ONE (17:20)
[2025-07-16 17:39] LABS: Source, Urine Foley catheter
[2025-07-16 17:46] LABS: Bilirubin, Urine Neg (Neg); Color, Urine Yellow (P-Yellow); Glucose Qualitative, Urine 1+ (Neg); Ketones, Urine Neg (Neg); Leukocyte Esterase, Urine 3+ (Neg); Protein, Urine 3+ (Neg); Specific Gravity, Urine 1.010 (1.003-1.022); Urobilinogen, Urine NORM (Normal)
[2025-07-16 17:56] LABS: White Blood Cells, Urine 50-100 /hpf (0-5)
[2025-07-16] MEDS ORDERED: ACYCLOVIR IV SCH (18:00)
[2025-07-16] MEDS ORDERED: DEXTROSE 5% IV SCH (18:00)
--- NOTE | 2025-07-16 18:48 | NUR ---
ARRIVAL TO PCU/ SHIFT SUMMARY PT ARRIVED TO PCU AT 1506 VIA [place]. REPORT RECIEVED AT 1450 FROM ER NURSE. PT SLID FROM [facility] TO PCU BED VIA SLIDE SHEET AND 5 STAFF MEMBERS. PT ENDORSED SEVERE PAIN TO HIS LEFT RIBS AND NECK DURING TRANSFER. MD NOTIFED AND DILAUDID ORDERED, SEE EMAR. PT OBTUNDED AT ARRIVAL BUT ROUSES BRIEFLY TO ANSWER FEW QUESTIONS. PRESENT AND ANSWERED HISTORY QUESTIONS. PT IN DROPLET PRECAUTIONS FOR RULE OUT MENIGITIS, UPDATED. REPORTED TO MD THAT PT HAD HISTORY OF MENIGITIS IN THE . PALMER WAS IN PLACE AT TIME OF ARRIVAL, NEW TEMP PALMER PLACED AND UA SAMPLE SENT TO LAB.
[2025-07-16 19:32] LABS: Magnesium, Blood 2.2 mg/dL (1.6-2.4); Thyroid Stimulating Hormone 95.8 uIU/mL (0.360-4.800)
[2025-07-16 19:58] LABS: pH Blood Venous 7.39 (7.34-7.37)
[2025-07-16 20:15] VITALS: BP 106/86
[2025-07-16] MEDS ORDERED: Ampicillin Sodium 2000MG Vial IV SCH (21:00)
[2025-07-16] MEDS ORDERED: Ampicillin Sod 2,000 MG in NS 100 ML IV SCH (21:00)
[2025-07-16 23:46] VITALS: BP 128/109
[2025-07-17] VITALS (21 sets, daily range): BP systolic 115–169; BP diastolic 67–104
--- NOTE | 2025-07-17 01:03 | NUR ---
NOTIFICATION: DR STRONG NIGHT RESIDENT CALLED AND DISCUSSED LOW URINE OUTPUT OF 60 CC IN PALMER FOR THIS SHIFT, BLOOD SUGAR 80 AND PT TOO LETHARGIC TO TAKE PO AT THIS TIME. PM FLOMAX NOT GIVEN. MD TO REVIEW PT MEDS AND WILL HOLD OFF TRANSFERING ALL MEDS TO IV HE WANTS TO SEE HOW PT MENTATION IMPROVES AFTER [facility] 07/17. SO FAR DC PO KEPPRA AND WAITING FOR MED TO BE TRANSITIONED TO IV. WILL RECALL IF MED DOESNT APPEAR ON DEC.
[2025-07-17 04:11] LABS: BASOPHILS ABSOLUTE AUTO 0.03 K/mm3 (0.00-0.23); BASOPHILS PERCENT AUTO 0 % (0-2); EOSINOPHILS ABSOLUTE AUTO 0.03 K/mm3 (0.00-0.68); EOSINOPHILS PERCENT AUTO 0 % (0-6); Hematocrit 39.9 % (37.0-53.0); Hemoglobin 12.6 g/dL (13.5-17.5); IMMATURE GRAN ABSOLUTE AUTO 0.03 K/mm3 (0.00-0.10); IMMATURE GRAN PERCENT AUTO 0 % (0-1); LYMPHOCYTES ABSOLUTE AUTO 0.51 K/mm3 (0.84-5.20); LYMPHOCYTES PERCENT AUTO 6 % (21-46); MONOCYTES ABSOLUTE AUTO 1.03 K/mm3 (0.16-1.47); MONOCYTES PERCENT AUTO 12 % (4-13); Mean Corpuscular HGB Conc 31.6 g/dL (31.5-36.5); Mean Corpuscular Volume 102 fL (80-100); NEUTROPHILS ABSOLUTE AUTO 6.74 K/mm3 (1.96-9.15); NEUTROPHILS PERCENT AUTO 80 % (41-73); NRBC ABSOLUTE 0.00 K/mm3 (0.00-0.02); NRBC Auto 0.0 /100 WBC (0.0-0.2); Platelet Count 150 K/mm3 (150-400); RDW Coefficient Variation 15.8 % (11.7-14.2); RDW Standard Deviation 59.3 fL (35.1-46.3)
[2025-07-17 04:37] LABS: Alanine Aminotransfer (ALT/SGP 13 U/L (12-78); Albumin, Blood 2.5 g/dL (3.4-5.0); Albumin/Globulin Ratio 0.7 (0.8-1.8); Anion Gap 12 mmol/L (3-11); Aspartate Aminotrans (AST/SGOT 15 U/L (12-37); Bilirubin, Total 0.4 mg/dL (0.1-1.0); Blood Urea Nitrogen 52 mg/dL (8-24); CO2, Blood 24 mmol/L (21-32); Calcium, Blood 7.8 mg/dL (8.5-10.1); Chloride, Blood 102 mmol/L (98-108); Creatinine, Blood 7.29 mg/dL (0.60-1.20); Globulin, Blood 3.6 g/dL (2.2-4.0); Glucose, Blood 82 mg/dL (70-99); Potassium, Blood 4.9 mmol/L (3.5-5.5); Sodium, Blood 133 mmol/L (136-145); Total Protein, Blood 6.1 g/dL (6.4-8.2); Vancomycin, Random 19.9 ug/mL
--- NOTE | 2025-07-17 06:04 | NUR ---
PT RECEIVED IV ABX TRANSFUSIONS PER DEC. PT UNABLE TO TAKE PO MEDS SAFELY THIS SHIFT, HAD LOW URINE OUTPUT, AND REMAINS IN PAIN WITH MOVEMENT. MD NOTIFIED OF CONFUSION AND KEPPRA PO CHANGED TO IV AND WILL DEFER CHANGING ALL MEDS TILL AFTER [facility] TODAY TO SEE IF ENCEPHALOPATHY CLEARS. PT LATER IN SHIFT ABLE TO STATE NAME AND BIRTHDATE AND AWARE HE IS IN [place]. PT REMAINED IN PAIN AND PRN DILAUDID GIVEN TWICE. CO2 PROBE PLACED FOR RESPIRATORY STATUS. PT ON 1-2 LITERS NC, HAS 2 PIVS W LEFT LIMB RESTRICTION FOR FISTULA PLACEMENT. PT CLEANED OF SMEAR AND TURNED 3 TIMES DURING SHIFT PT PAIN ALLOWED. ACCUCK TAKEN Q 6 FOR NPO STATUS
[2025-07-17] MEDS ORDERED: Calcium Acetate 667 MG Gel Cap PO SCH (09:00)
[2025-07-17] MEDS ORDERED: D5W-1/2NS 1,000 ML IV SCH (11:40)
[2025-07-17] MEDS ORDERED: HydrALAZINE HCl 20 MG / ML 1ML Vial IV PRN (17:30)
[2025-07-17] MEDS ORDERED: CefTRIAXone Sodium 2,000 MG in NS 100 ML IV SCH (18:00)
--- NOTE | 2025-07-17 19:21 | NUR ---
SHIFT SUMMARY: PT ALTERED THROUGHOUT SHIFT. WAS ABLE TO STATE YEAR A COUPLE TIMES THIS AM BUT THE REST OF THE DAY WAS NOT ABLE TO MAKE SENSE WHEN ANY QUESTIONS WERE ASKED. PT WAS VERY DROUSY THIS AM AND THEN BECAME MORE ALERT THIS AFTERNOON AND BECAME RESTLESS IN BED AND VERY ANXIOUS STATING THAT HE WAS SEEING BLACK DOTS ON THE CEILING. PT APPEARED TO BE IN PAIN, WAS MEDICATED PER EMAR. THEN WAS TAKEN TO IMAGING. PALMER REMAINS IN PLACE. PT HAS NOT HAD MUCH URINARY OUTPUT THIS SHIFT. D5 1/2 NS CONTINUES. NO OTHER SIGNIFICANT EVENTS HAPPENED DURING THIS SHIFT.REPORT TO AHMZAH De Los Santos RN TO ASSUME CARE OF PT.
[2025-07-17] MEDS ORDERED: Haloperidol Lactate Inj. 5 MG/ML Injection IM STA (21:22)
[2025-07-18 03:00] VITALS: BP 118/83
[2025-07-18 04:07] LABS: BASOPHILS ABSOLUTE AUTO 0.02 K/mm3 (0.00-0.23); BASOPHILS PERCENT AUTO 0 % (0-2); EOSINOPHILS ABSOLUTE AUTO 0.04 K/mm3 (0.00-0.68); EOSINOPHILS PERCENT AUTO 1 % (0-6); Hematocrit 38.9 % (37.0-53.0); Hemoglobin 12.3 g/dL (13.5-17.5); IMMATURE GRAN ABSOLUTE AUTO 0.02 K/mm3 (0.00-0.10); IMMATURE GRAN PERCENT AUTO 0 % (0-1); LYMPHOCYTES ABSOLUTE AUTO 0.62 K/mm3 (0.84-5.20); LYMPHOCYTES PERCENT AUTO 8 % (21-46); MONOCYTES ABSOLUTE AUTO 1.01 K/mm3 (0.16-1.47); MONOCYTES PERCENT AUTO 14 % (4-13); Mean Corpuscular HGB Conc 31.6 g/dL (31.5-36.5); Mean Corpuscular Volume 102 fL (80-100); NEUTROPHILS ABSOLUTE AUTO 5.75 K/mm3 (1.96-9.15); NEUTROPHILS PERCENT AUTO 77 % (41-73); NRBC ABSOLUTE 0.00 K/mm3 (0.00-0.02); NRBC Auto 0.0 /100 WBC (0.0-0.2); Platelet Count 179 K/mm3 (150-400); RDW Coefficient Variation 15.2 % (11.7-14.2); RDW Standard Deviation 57.2 fL (35.1-46.3)
--- NOTE | 2025-07-18 04:31 | NUR ---
SHIFT SUMMARY. PT MENTATION HAS FLUCTUATED A LOT THROUGHOUT THE COURSE OF THE SHIFT. AT TIMES, AOX2-3 AND ALERT/RESPONSIVE TO REDIRECTION AND CONVERSATION. AT OTHER TIMES, UNABLE TO ANSWER ORIENTATION QUESTIONS APPROPRIATELY AND INSTEAD MUMBLES TO HIMSELF. WORD SALAD MORE PRONOUNCED AT SOME TIMES THAN OTHERS. FEW INSTANCES OF SIGNIFICANT ANXIETY/DISTRESS. AT ONE TIME REQUIRED IM HALDOL FOR MANAGEMENT WHICH WAS EFFECTIVE. AT TIMES, DISTRESS SEEMS ASSOCIATED W/ PAIN AND IS RELIEVED VIA PRN PAIN MEDICATIONS. OVERALL HAS BEEN ABLE TO REST COMFORTABLY THROUGHOUT MUCH OF SHIFT. CONTINUES TO RUN SINUS THROUGHOUT SHIFT ON TELE. VITALS HAVE BEEN STABLE. FLUIDS INFUSING THROUGHOUT SHIFT. PALMER IN PLACE, MINIMAL OUTPUT. MAINTAINS ADEQUATE SATURATION ON ROOM AIR WHILE AWAKE, 2 L O2 VIA NC WHILE SLEEPING. BEDREST THROUGHOUT SHIFT. REPOSITIONING PT ALLOWS. BED LOCKED IN LOWEST POSITION. CALL LIGHT LEFT WITHIN REACH. CONTINUING TO MONITOR.
[2025-07-18 04:32] LABS: Albumin, Blood 2.5 g/dL (3.4-5.0); Anion Gap 11 mmol/L (3-11); Blood Urea Nitrogen 33 mg/dL (8-24); CO2, Blood 29 mmol/L (21-32); Calcium, Blood 7.9 mg/dL (8.5-10.1); Chloride, Blood 98 mmol/L (98-108); Creatinine, Blood 5.77 mg/dL (0.60-1.20); Glucose, Blood 136 mg/dL (70-99); Magnesium, Blood 1.9 mg/dL (1.6-2.4); Phosphorus, Blood 6.1 mg/dL (2.5-4.9); Potassium, Blood 4.4 mmol/L (3.5-5.5); Sodium, Blood 134 mmol/L (136-145)
[2025-07-18 09:42] VITALS: BP 148/96
[2025-07-18 13:26] VITALS: BP 135/90
[2025-07-18] MEDS ORDERED: LORazepam 2 MG/ML 1ML Injection IV ONE (13:40)
[2025-07-18] MEDS ORDERED: Midazolam HCl 1MG / ML 2ML Vial ONE (14:37)
[2025-07-18] MEDS ORDERED: Midazolam HCl 1MG / ML 2ML Vial IV PRN (14:40)
[2025-07-18 15:40] VITALS: BP 150/73
[2025-07-18 15:49] LABS: Automated CSF WBC Count 0.006 K/mm3 (0-5)
[2025-07-18 15:51] LABS: WBC Count, CSF 6 /mm3 (0-5)
[2025-07-18 15:53] LABS: Automated CSF WBC Count 0.003 K/mm3 (0-5)
[2025-07-18 15:54] LABS: WBC Count, CSF 3 /mm3 (0-5)
[2025-07-18] MEDS ORDERED: NS 250 ML IV ONE (16:00)
[2025-07-18 16:02] LABS: RBC Count, CSF 5 /mm3 (0-0)
[2025-07-18 16:08] LABS: RBC Count, CSF 0 /mm3 (0-0)
[2025-07-18 17:00] LABS: Lymphocytes, CSF 88 % (40-80); Monocytes, CSF 12 % (15-45)
[2025-07-18 17:41] LABS: Haemophilus Influenza Not Detected (NOT DETECT)
--- NOTE | 2025-07-18 18:48 | NUR ---
SHIFT SUMMARY: PT ALTERED THROUGHT SHIFT. WAS ABLE TO TELL ME AND PLACE BUT THESE DID NOT CORRELATE WITH THE QUESTIONS THAT WERE BEING ASKED. PT WAS PLACED IN SOFT RESTRAINTS THIS AM DUE TO PULLING AT LINES AND CORDS AND WAS NOT REDIRECTABLE, RESTRAINTS WERE DC'D AT 0930. PT RESTED OFF AND ON THROUGOUT THE DAY, WOKE UP ANXIOUS A HYPERVENTILATING A COUPLE OF TIMES BUT THEN WOULD FALL BACK ASLEEP. LP WAS PERFORMED THIS AFTERNOON. PENDING RESULTS. PT RECIEVED DILAUDUD AND ATIVAN. D5 1/2 NS CONTINUES. PT HAS REMAINED ON RA THROUGHOUT SHIFT. VSS. MAP >65. NO OTHER SIGNIFICANT EVENTS HAPPENED DURING THIS SHIFT. WILL CONTINUE TO CARE FOR PT TILL END OF SHIFT.
[2025-07-18 20:00] VITALS: BP 107/92
[2025-07-19] VITALS (24 sets, daily range): BP systolic 120–190; BP diastolic 65–116
[2025-07-19 03:54] LABS: BASOPHILS ABSOLUTE AUTO 0.03 K/mm3 (0.00-0.23); BASOPHILS PERCENT AUTO 1 % (0-2); EOSINOPHILS ABSOLUTE AUTO 0.03 K/mm3 (0.00-0.68); EOSINOPHILS PERCENT AUTO 1 % (0-6); Hematocrit 35.3 % (37.0-53.0); Hemoglobin 11.6 g/dL (13.5-17.5); IMMATURE GRAN ABSOLUTE AUTO 0.01 K/mm3 (0.00-0.10); IMMATURE GRAN PERCENT AUTO 0 % (0-1); LYMPHOCYTES ABSOLUTE AUTO 0.47 K/mm3 (0.84-5.20); LYMPHOCYTES PERCENT AUTO 8 % (21-46); MONOCYTES ABSOLUTE AUTO 0.65 K/mm3 (0.16-1.47); MONOCYTES PERCENT AUTO 11 % (4-13); Mean Corpuscular HGB Conc 32.9 g/dL (31.5-36.5); Mean Corpuscular Volume 99 fL (80-100); NEUTROPHILS ABSOLUTE AUTO 4.68 K/mm3 (1.96-9.15); NEUTROPHILS PERCENT AUTO 80 % (41-73); NRBC ABSOLUTE 0.00 K/mm3 (0.00-0.02); NRBC Auto 0.0 /100 WBC (0.0-0.2); Platelet Count 168 K/mm3 (150-400); RDW Coefficient Variation 14.9 % (11.7-14.2); RDW Standard Deviation 55.0 fL (35.1-46.3)
[2025-07-19 04:11] LABS: Albumin, Blood 2.4 g/dL (3.4-5.0); Anion Gap 13 mmol/L (3-11); Blood Urea Nitrogen 40 mg/dL (8-24); CO2, Blood 26 mmol/L (21-32); Calcium, Blood 7.9 mg/dL (8.5-10.1); Chloride, Blood 99 mmol/L (98-108); Creatinine, Blood 6.88 mg/dL (0.60-1.20); Glucose, Blood 106 mg/dL (70-99); Magnesium, Blood 1.8 mg/dL (1.6-2.4); Phosphorus, Blood 6.0 mg/dL (2.5-4.9); Potassium, Blood 4.1 mmol/L (3.5-5.5); Sodium, Blood 134 mmol/L (136-145)
--- NOTE | 2025-07-19 05:18 | NUR ---
SHIFT SUMMARY PT HAS TOLERATED SHIFT WELL WITH NO SIGNIFICANT EVENTS OR CHANGES OVERNIGHT. PT HAS BEEN RESTING COMFORTABLY IN ROOM THROUGH NIGHT. PT HAS BEEN CONFUSED FOR THIS NURSE AND HAS ONLY BEEN ALERT TO SELF WHEN WILLING OR ABLE TO ANSWER QUESTIONS. PTS VITALS HAVE REMAINED STABLE THROUGH NIGHT. WILL CONTINUE TO MONITOR UNTIL REPORT PASSED TO DAY SHIFT TEAM.
--- NOTE | 2025-07-19 07:29 | NUR ---
ASSUMPTION OF CARE: REPORT FROM PENTECOSTAL RN. THIS RN TO ASSUME CARE OF PT. PT APPEARS TO BE RESTING COMFORTABLY IN BED WITH EQUAL NONLABORED RESPIRATIONS. VSS. DOES NOT APPEAR TO BE IN ANY DISTRESS. REMAINS ON CARDIAC AND VS MONITORING. BED IN LOW POSITION, AND BED ALARM ON.
[2025-07-19 07:38] LABS: Vancomycin, Random 18.8 ug/mL
[2025-07-19] MEDS ORDERED: HYDROmorphone HCl/Pf 1MG SYR IV PRN (14:05)
[2025-07-19] MEDS ORDERED: CefTRIAXone Sodium 1,000 MG in NS 100 ML IV SCH (18:00)
--- NOTE | 2025-07-19 18:13 | NUR ---
SHIFT SUMMARY: PT ALTERED THIS AM AND THEN BECAME MORE ALERT (A&OX4) THIS LATE MORNING. BECAME DROUSY THIS AFTERNOON AND TOOK A NAP. PT WOKE UP AROUND 1750 VERY ADGITATED, TRYING TO CLIMB OUT OF BED AND VERY FIXATED ON ANY WORD THAT WAS VÍCTOR IN HIS ROOM AT THAT TIME. PT NOT REDIRECTABLE. SITTER AT BEDSIDE. PT RECIEVED AN MRI TODAY AND HAD 2L TAKE OFF WITH DIALYSIS TODAY. NO OTHER SIGNIFICANT EVENTS HAPPENED DURING THIS SHIFT. WILL CONTINUE TO CARE FOR PT TILL END OF SHIFT.
[2025-07-20 02:30] LABS: LACTATE DEHYDROGENASE TOTAL,BF 16 U/L; LDH FLUID SOURCE CSF
[2025-07-20 04:19] VITALS: BP 129/84
[2025-07-20 04:40] LABS: BASOPHILS ABSOLUTE AUTO 0.03 K/mm3 (0.00-0.23); BASOPHILS PERCENT AUTO 1 % (0-2); EOSINOPHILS ABSOLUTE AUTO 0.10 K/mm3 (0.00-0.68); EOSINOPHILS PERCENT AUTO 2 % (0-6); Hematocrit 35.2 % (37.0-53.0); Hemoglobin 11.5 g/dL (13.5-17.5); IMMATURE GRAN ABSOLUTE AUTO 0.01 K/mm3 (0.00-0.10); IMMATURE GRAN PERCENT AUTO 0 % (0-1); LYMPHOCYTES ABSOLUTE AUTO 0.75 K/mm3 (0.84-5.20); LYMPHOCYTES PERCENT AUTO 18 % (21-46); MONOCYTES ABSOLUTE AUTO 0.55 K/mm3 (0.16-1.47); MONOCYTES PERCENT AUTO 13 % (4-13); Mean Corpuscular HGB Conc 32.7 g/dL (31.5-36.5); Mean Corpuscular Volume 99 fL (80-100); NEUTROPHILS ABSOLUTE AUTO 2.79 K/mm3 (1.96-9.15); NEUTROPHILS PERCENT AUTO 66 % (41-73); NRBC ABSOLUTE 0.00 K/mm3 (0.00-0.02); NRBC Auto 0.0 /100 WBC (0.0-0.2); Platelet Count 137 K/mm3 (150-400); RDW Coefficient Variation 14.9 % (11.7-14.2); RDW Standard Deviation 54.9 fL (35.1-46.3)
[2025-07-20 04:56] LABS: Anion Gap 9.0 mmol/L (3-11); Blood Urea Nitrogen 21.0 mg/dL (8-24); CO2, Blood 30.0 mmol/L (21-32); Calcium, Blood 8.0 mg/dL (8.5-10.1); Chloride, Blood 98.0 mmol/L (98-108); Creatinine, Blood 5.28 mg/dL (0.60-1.20); Glucose, Blood 131.0 mg/dL (70-99); Potassium, Blood 3.9 mmol/L (3.5-5.5); Sodium, Blood 133.0 mmol/L (136-145)
--- NOTE | 2025-07-20 06:49 | NUR ---
SHIFT SUMMARY: PT A&OX2-4 CALM AND COOPERATIVE THROUGHOUT SHIFT. OCCASIONALLY DISORIENTED TO DATE AND CURRENT SITUATION. VSS ON RA. PALMER CATHETER IN PLACE DRAINING TO GRAVITY. MINIMAL URINE OUTPUT. KEPT NPO AND BEDREST D/T AMS. PT C/O BACK AND SHOULDER PAIN 03/06. MEDICATED PER EMAR. RECEIVING IV ABX. BED IS LOW AND LOCKED. 1:1 SITTER. CONTINUE WITH CURRENT PLAN OF CARE.
[2025-07-20 09:00] VITALS: BP 133/104
[2025-07-20] MEDS ORDERED: AMLO5 PO (10:29)
[2025-07-20] MEDS ORDERED: BUPRENORPHINE HC2 MG SL (10:33)
[2025-07-20] MEDS ORDERED: Norco 5-325 Ta1 EACH PO (10:34)
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
[2025-07-20 12:11] VITALS: BP 150/103
[2025-07-20] MEDS ORDERED: HYDROcodone 5-APAP 325 TAB PO PRN (14:45)
[2025-07-20] MEDS ORDERED: HYDROmorphone HCl/Pf 1MG SYR IV PRN (14:50)
[2025-07-20] MEDS ORDERED: Polyethylene Glycol 3350 17 gm PO SCH (15:00)
[2025-07-20] MEDS ORDERED: Calcium Acetate 667 MG Gel Cap PO SCH (17:30)
--- NOTE | 2025-07-20 18:47 | NUR ---
EOS: PATIENT HAS DRAMATICALLY IMPROVED. WAS ABLE TO WORK WITH PT/OT, ANSWERING QUESTIONS MORE APPROPRIATELY. AT BEDSIDE MOST OF THE NIGHT, CBG Q6, 90-100'S STILL INFUSING DEXTROSE 1/2NS, HAS BEEN MORE APPRORPIATE THIS SHIFT, NO ACUTE CONCERNS STILL DENIES CHEST PAIN PRESSURE OR SOB AT REST. PLAN OF CARE CONTINUES
[2025-07-20 20:14] VITALS: BP 138/94
[2025-07-20 23:28] VITALS: BP 138/85
[2025-07-21] VITALS (23 sets, daily range): BP systolic 139–208; BP diastolic 64–112
[2025-07-21 03:55] LABS: Hematocrit 34.4 % (37.0-53.0); Hemoglobin 11.2 g/dL (13.5-17.5); Mean Corpuscular HGB Conc 32.6 g/dL (31.5-36.5); Mean Corpuscular Volume 98 fL (80-100); NRBC ABSOLUTE 0.00 K/mm3 (0.00-0.02); NRBC Auto 0.0 /100 WBC (0.0-0.2); Platelet Count 132 K/mm3 (150-400); RDW Coefficient Variation 15.0 % (11.7-14.2); RDW Standard Deviation 53.8 fL (35.1-46.3)
--- NOTE | 2025-07-21 04:18 | NUR ---
Assumed care of pt at 1900. Pt oriented to self and place but has intermittent confusion about time and situation. Pt pleasant and cooperative. Carlos patent and draining to gravity. On RA and all VS WNL. Pt turned q 2hrs. Pt awake most of the night watching TV. Sitter remains at bedside. Bed in lowest position and call light within reach.
[2025-07-21 04:44] LABS: Albumin, Blood 2.3 g/dL (3.4-5.0); Anion Gap 11 mmol/L (3-11); Blood Urea Nitrogen 26 mg/dL (8-24); CO2, Blood 26 mmol/L (21-32); Calcium, Blood 7.6 mg/dL (8.5-10.1); Chloride, Blood 99 mmol/L (98-108); Creatinine, Blood 5.97 mg/dL (0.60-1.20); Glucose, Blood 176 mg/dL (70-99); Phosphorus, Blood 4.7 mg/dL (2.5-4.9); Potassium, Blood 3.9 mmol/L (3.5-5.5); Sodium, Blood 132 mmol/L (136-145)
--- NOTE | 2025-07-21 08:15 | NUR ---
ASSUMPTION NOTE; THIS RN TO ASSUME CARE OF PATIENT. PATIENT IS WAKING UP BY STERNAL RUBS AND OPENING EYES BUT DROWSY. PATIENT FALLS ASLEEP SHORTLY AFTER OPENING EYES. SPEECH CAME TO EVALUATE AND PATIENT NOT WAKING UP ENOUGH TO BE EVALUATED. PATIENT IS SET TO GO TO DIALYSIS THIS MORNING. VITAL SIGNS STABLE AND LABS STABLE.
[2025-07-21] MEDS ORDERED: Lactobacil 2-S.Thermo-Bifido 1 1 Cap PO SCH (10:00)
--- NOTE | 2025-07-21 12:44 | NUR ---
RETURN FROM DIALYSIS: PATIENT RETURNS FROM DIALYSIS AND IS MORE AWAKE AND ALERT. PATIENT IS ALERT AND ORIENTED X3, NOT ABLE TO GIVE EXACT DATE. PATIENT DOES REPORT SEEING FUZZY THINGS IN HIS VISION OCCASINALLY. PATIENT ASKING FOR LUNCH AND MADE AWARE THAT PATIENT IS MEDICAL STATUS AND WILL BE MOVING TO ANOTHER ROOM. THIS RN TO NOTIFY WELL. PATIENT SITTING UP IN BED AND EATING LUNCH,CALL LIGHT WITHIN REACH & BED IN LOWEST LOCKED POSIITON,CALL LIGHT WITHIN REACH.
--- NOTE | 2025-07-21 13:47 | NUR ---
CALLED BACK: CALLED AND THIS RN REPORTED TO HER THAT PATIENT REPORTED "SEEING FUZZY'S AND THINGS IN HIS LINE OF VISION". MD GAVE NO NEW ORDERS AT THIS TIME.
--- NOTE | 2025-07-21 14:05 | NUR ---
TRANSFER NOTE: PATIENT IS ALERT AND ORIETNED X3, NOT ABLE TO GIVE THE EXACT DATE. PATIENT IS SATTING >92% ON ROOM AIR,DENIED ANY SHORTNESS OF BREAHT. PATIENT IS MEDICAL WITHOUT TELE STATUS. AT BEDSIDE AND ALL PERSONAL BELONGIGNS WENT WITH PATIENT ALONG WITH CHART. PATIENT WAS TRASNFFERED UPSTAIRS AND REPORT WAS GIVEN PRIOR TO ARRIVAL.
--- NOTE | 2025-07-21 15:01 | NUR ---
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 TRANSFERED IN HOSPITAL BED WITH HIS ACCOMPANYING HIM. HE IS AWAKE, ORIENTATED TO HIMSELF, TO "HOSPITAL" BUT NOT WHICH ONE, NOT TO MONTH/YEAR OR REASON FOR BEING IN HOSPITAL. HE WORKED WITH PHYSICAL THERAPIST JUST PRIOR TO TRANSFER AND WANTS TO REST IN BED NOW. BED LOW, CALL LIGHT IN REACH.
[2025-07-21] MEDS ORDERED: NS 250 ML IV PRN (15:25)
--- NOTE | 2025-07-21 18:16 | NUR ---
RN NOTE MR NERISSA WORKED WITH O.T. AND WALKED IN THE HALLS. SITTING UP IN THE CHAIR NOW FOR SUPPER. HE IS FORGETFUL. HE SAID HE STILL HAS ABNORMAL FLOATERS IN HIS VISION. RESPIRATIONS EVEN, UNLABORED.
[2025-07-22 04:20] VITALS: BP 162/93
--- NOTE | 2025-07-22 05:20 | NUR ---
PT INTERMITTENTLY ALERT THEN DROWSY AND LETHARGIC DURING THE NIGHT. PT FORGETFUL AND C/O POOR VISION- USUALLY CALLS OUT INSTEAD OF USING CALL LIGHT. PT REPOSITIONS SELF- NEEDS ENCOURAGEMENT TO CHANGE POSITION AT TIMES. MEPELEX INTACT TO COCCYX. PALMER DRAINING YELLOW URINE. SLEPT LONG INTERVALS DURING THE NIGHT. BED ALARM ON, CALL LIGHT WITHIN REACH.
[2025-07-22 07:15] VITALS: BP 175/97
[2025-07-22 11:02] VITALS: BP 154/84
--- NOTE | 2025-07-22 11:07 | NUR ---
RN NOTE MR MULTANI IS ORIENTATED TO SELF, [facility] (NOT [facility]), , NOT YEAR. UP IN CHAIR, ABLE TO STAND WITH 1 PERSON ASSISTANCE. HE DENIES PAIN OR NAUSEA THIS MORNING. BLOOD PRESSURE ELEVATED THIS AM, IV HYDRALAZINE EFFECTIVE. MR MULTANI SAID HE STILL HAS FLOATERS TO BOTH EYES. CHAIR ALARM ON. AT BEDSIDE.
[2025-07-22 12:16] LABS: Anion Gap 10.0 mmol/L (3-11); Blood Urea Nitrogen 22.0 mg/dL (8-24); CO2, Blood 30.0 mmol/L (21-32); Calcium, Blood 7.9 mg/dL (8.5-10.1); Chloride, Blood 99.0 mmol/L (98-108); Creatinine, Blood 5.07 mg/dL (0.60-1.20); Glucose, Blood 79.0 mg/dL (70-99); Potassium, Blood 4.1 mmol/L (3.5-5.5); Sodium, Blood 135.0 mmol/L (136-145)
[2025-07-22 14:41] VITALS: BP 140/74
--- NOTE | 2025-07-22 18:03 | NUR ---
SHIFT SUMMARY MR MULTANI HAS AMBULATED IN THE HALLS TODAY. HE HAS SAT UP IN THE CHAIR FOR MOST OF THE DAY. WAS HERE WITH HIM. CHRONIC PALMER IN PLACE. EDEMA TO LEFT ARM - ELEVATED ON PILLOWS. NO C/O PAIN OR SHORTNESS OF BREATH. ORIENTATED TO SELF, HOSPITAL IN [place] (NOT [facility]), MONTH NOT YEAR. PT STILL SEEING FLOATERS IN BOTH EYES WHICH IS UNCHANGED. BED AND CHAIR ALARMS USED, CALL LIGHT IN REACH.
[2025-07-22 19:16] VITALS: BP 143/76
[2025-07-23] VITALS (18 sets, daily range): BP systolic 117–175; BP diastolic 51–100
--- NOTE | 2025-07-23 06:10 | NUR ---
SHIFT SUMMARY PT SLEPT INTERMITTENTLY DURING THE NIGHT. PALMER DRAINING SLIGHTLY BLOOD TINGED URINE AT START OF SHIFT- PT STATES IT WAS ACCIDENTLY TUGGED ON EARLIER IN THE DAY, URINE HAS CLEARED UP AND IS NOW YELLOW. PT DENIES COMPLAINTS. BED ALARM ON, CALL LIGHT WITHIN REACH.
[2025-07-23 07:16] LABS: Albumin, Blood 2.5 g/dL (3.4-5.0); Anion Gap 10 mmol/L (3-11); Blood Urea Nitrogen 33 mg/dL (8-24); CO2, Blood 28 mmol/L (21-32); Calcium, Blood 7.8 mg/dL (8.5-10.1); Chloride, Blood 98 mmol/L (98-108); Creatinine, Blood 6.12 mg/dL (0.60-1.20); Glucose, Blood 79 mg/dL (70-99); Phosphorus, Blood 4.9 mg/dL (2.5-4.9); Potassium, Blood 4.6 mmol/L (3.5-5.5); Sodium, Blood 131 mmol/L (136-145)
[2025-07-23] MEDS ORDERED: AMOCLA875 PO (13:37)
[2025-07-23] MEDS ORDERED: VISBIOME 112.51 EACH (13:37)
[2025-07-23] MEDS ORDERED: TAMS.4ER PO (13:38)
[2025-07-23] MEDS ORDERED: MIRALAX17 GM PO (13:38)
--- NOTE | 2025-07-23 14:18 | NUR ---
DISCHARGE PT DISCHARGED TO [facility] VIA WHEELCHAIR TRANSPORT. ALL BELONGINGS SENT WITH . REPORT GIVEN TO [facility]
== END 2025-07-23 14:22 | DRG 698 ==
LOC: ER 08:57 → PCU 08:58 → ER 08:58 → PCU 08:58 → MEDS 07-21 13:54 → ENPENDDIS 07-23 11:19 → MEDS 07-23 14:22
PROVIDERS: Emergency Medicine; Internal Medicine; ADMIT Family Medicine
PROC: 009U3ZX Drainage of Spinal Canal, Percutaneous Approach, Diagnostic (ICD-10-PCS; principal; 2025-07-17)
PROC: 5A1D70Z Performance of Urinary Filtration, Intermittent, Less than 6 Hours Per Day (ICD-10-PCS; 2025-07-17)
PROC: 3E03329 Introduction of Other Anti-infective into Peripheral Vein, Percutaneous Approach (ICD-10-PCS; 2025-07-17)
PROC: 0T2BX0Z Change Drainage Device in Bladder, External Approach (ICD-10-PCS; 2025-07-17)
DX: T83.511A Infection and inflammatory reaction due to indwelling urethral catheter, initial encounter (principal); A41.59 Other Gram-negative sepsis; G92.8 Other toxic encephalopathy; N18.6 End stage renal disease; E87.1 Hypo-osmolality and hyponatremia; I12.0 Hypertensive chronic kidney disease with stage 5 chronic kidney disease or end stage renal disease; Z66 Do not resuscitate; Y84.6 Urinary catheterization as the cause of abnormal reaction of the patient, or of later complication, without mention of misadventure at the time of the procedure; G89.4 Chronic pain syndrome; M50.30 Other cervical disc degeneration, unspecified cervical region; M19.012 Primary osteoarthritis, left shoulder; M17.11 Unilateral primary osteoarthritis, right knee; H26.9 Unspecified cataract; E03.9 Hypothyroidism, unspecified; D63.1 Anemia in chronic kidney disease; Z99.2 Dependence on renal dialysis; I48.0 Paroxysmal atrial fibrillation; G40.909 Epilepsy, unspecified, not intractable, without status epilepticus; Z79.01 Long term (current) use of anticoagulants; N40.1 Benign prostatic hyperplasia with lower urinary tract symptoms; R33.8 Other retention of urine; F32.A Depression, unspecified; Z79.890 Hormone replacement therapy; Z79.899 Other long term (current) drug therapy; Z98.84 Bariatric surgery status; E16.2 Hypoglycemia, unspecified; N30.90 Cystitis, unspecified without hematuria
CPT/HCPCS: 36415; 51703; 70450; 70551; 72125; 73560-RT; 80048; 80053; 80069; 80202; 81001; 82803; 82945; 82947; 83605; 83615; 83735; 84157; 84439; 84443; 84481; 85025; 85027; 86592; 86617; 87040; 87070; 87077; 87086; 87186; 87205; 87483; 89051; 92526; 92610; 96365; 96367; 96374; 96375; 96376; 97110; 97112; 97116; 97162; 97165; 97530; 97535; 99285-25; A9270; C1751; G0378; J0133; J0290; J0360; J0696; J1171; J1630; J1953; J2060; J2250; J3373; J7040; J7042; J7050

== ENCOUNTER 2025-08-18 10:09 | Observation (INO) | payer OTHER ==
[~2025-08-18] VITALS: Ht 175.3 cm; Wt 75.3 kg
[~2025-08-18 10:09] MED LIST changes: +AMLO5 PO; +AMOCLA875 PO; +BUPRENORPHINE HC2 MG SL; +MIRALAX17 GM PO; +Norco 5-325 Ta1 EACH PO; +TAMS.4ER PO; +VISBIOME 112.51 EACH
[2025-08-18] MEDS ORDERED: ELIQUIS2.5 MG PO (10:22)
[2025-08-18 10:32] LABS: BASOPHILS ABSOLUTE AUTO 0.03 K/mm3 (0.00-0.23); BASOPHILS PERCENT AUTO 1 % (0-2); EOSINOPHILS ABSOLUTE AUTO 0.06 K/mm3 (0.00-0.68); EOSINOPHILS PERCENT AUTO 1 % (0-6); Hematocrit 38.3 % (37.0-53.0); Hemoglobin 12.5 g/dL (13.5-17.5); IMMATURE GRAN ABSOLUTE AUTO 0.01 K/mm3 (0.00-0.10); IMMATURE GRAN PERCENT AUTO 0 % (0-1); LYMPHOCYTES ABSOLUTE AUTO 0.64 K/mm3 (0.84-5.20); LYMPHOCYTES PERCENT AUTO 12 % (21-46); MONOCYTES ABSOLUTE AUTO 0.49 K/mm3 (0.16-1.47); MONOCYTES PERCENT AUTO 9 % (4-13); Mean Corpuscular HGB Conc 32.6 g/dL (31.5-36.5); Mean Corpuscular Volume 92 fL (80-100); NEUTROPHILS ABSOLUTE AUTO 4.23 K/mm3 (1.96-9.15); NEUTROPHILS PERCENT AUTO 78 % (41-73); NRBC ABSOLUTE 0.00 K/mm3 (0.00-0.02); NRBC Auto 0.0 /100 WBC (0.0-0.2); Platelet Count 168 K/mm3 (150-400); RDW Coefficient Variation 16.2 % (11.7-14.2); RDW Standard Deviation 54.9 fL (35.1-46.3)
[2025-08-18 10:57] LABS: Alanine Aminotransfer (ALT/SGP 12.0 U/L (12-78); Albumin, Blood 3.2 g/dL (3.4-5.0); Albumin/Globulin Ratio 0.8 (0.8-1.8); Anion Gap 15.0 mmol/L (3-11); Aspartate Aminotrans (AST/SGOT 19.0 U/L (12-37); Bilirubin, Total 0.4 mg/dL (0.1-1.0); Blood Urea Nitrogen 35.0 mg/dL (8-24); CO2, Blood 22.0 mmol/L (21-32); Calcium, Blood 8.6 mg/dL (8.5-10.1); Chloride, Blood 95.0 mmol/L (98-108); Creatinine, Blood 5.62 mg/dL (0.60-1.20); Globulin, Blood 3.8 g/dL (2.2-4.0); Glucose, Blood 97.0 mg/dL (70-99); Magnesium, Blood 2.1 mg/dL (1.6-2.4); Potassium, Blood 4.3 mmol/L (3.5-5.5); Sodium, Blood 128.0 mmol/L (136-145); Total Protein, Blood 7.0 g/dL (6.4-8.2)
[2025-08-18] MEDS ORDERED: NS 500 ML IV SCH (11:45)
[2025-08-18 13:45] LABS: Source, Urine Clean Catch
[2025-08-18 14:02] LABS: Bilirubin, Urine Neg (Neg); Glucose Qualitative, Urine 2+ (Neg); Ketones, Urine Neg (Neg); Leukocyte Esterase, Urine Neg (Neg); Protein, Urine 2+ (Neg); Specific Gravity, Urine 1.010 (1.003-1.022); Urobilinogen, Urine NORM (Normal)
[2025-08-18 14:08] LABS: Color, Urine Pale Yellow (P-Yellow)
[2025-08-18 14:11] LABS: White Blood Cells, Urine 0-2 /hpf (0-5)
[2025-08-18] MEDS ORDERED: FLU VACC TS2025(65UP)/MF59C/PF 45 MCG/0.5 ML SYRINGE IM SCH (15:10)
--- NOTE | 2025-08-18 19:44 | NUR ---
ADMIT NOTE/ SHIFT SUMMARY- PT ARRIVED ON MEDICAL FLOOR AT 1845. HE ARRIVED WITH A 22G IV IN THE RIGHT HAND SL. PT HAS A RIGHT CHEST PERMA CATH AND A LEFT ARM FISTULA. PT STATES TODAY WAS SUPPOSED TO BE THE FIRST TIME THEY USED THE FISTULA FOR HIS DIALYSIS. THRILL AND BRUIT NOTED. HEART TONES ARE WNL, RESP RATE EVEN AND UNLABORED. PT IS ANSWERING QUESTIONS APPROPRIATELY, HE HAS NO MEMORY OF THE SEIZURE OR THE AMBULANCE RIDE TO THE HOSPITAL. PT DID NOT HAVE DIALYSIS TODAY. PER MD NOTE,THEY SPOKE TO DR MEJIAS AND THE PT RAKESH NOT HAVE DIALYSIS TODAY. BEDSIDE REPORT COMPLETED WITH NIGHT RN. PT WAS AT [facility] FOR REHAB. HE STATED THEY WERE TALKING ABOUT DISCHARGING HIM HOME ON SATURDAY. PASSED ON INREPORT TO NIGHT RN SHE WILL COMPLETE THE ADMISSION PROCESS.
[2025-08-18 20:07] VITALS: BP 153/93
[2025-08-19] VITALS (16 sets, daily range): BP systolic 148–179; BP diastolic 80–98
[2025-08-19] MEDS ORDERED: Acetaminophen650 M1 PO (01:21)
--- NOTE | 2025-08-19 04:42 | NUR ---
SHIFT SUMMARY; AFTER ADMIT, PATIENT HAS BEEN ALERT AND ORIENTED ALL SHIFT SIDE RAILS PADDED, NO SEIZURE ACTIVITY MOTED. UP TO BSC 1A/WW. TOLERATED FAIR. PALMER PATENT. LEFT ARM FISTULA PULSING.
[2025-08-19 04:48] LABS: Hematocrit 33.1 % (37.0-53.0); Hemoglobin 10.7 g/dL (13.5-17.5); Mean Corpuscular HGB Conc 32.3 g/dL (31.5-36.5); Mean Corpuscular Volume 92 fL (80-100); NRBC ABSOLUTE 0.00 K/mm3 (0.00-0.02); NRBC Auto 0.0 /100 WBC (0.0-0.2); Platelet Count 167 K/mm3 (150-400); RDW Coefficient Variation 15.9 % (11.7-14.2); RDW Standard Deviation 54.5 fL (35.1-46.3)
[2025-08-19 05:38] LABS: Albumin, Blood 2.7 g/dL (3.4-5.0); Anion Gap 15 mmol/L (3-11); Blood Urea Nitrogen 41 mg/dL (8-24); CO2, Blood 21 mmol/L (21-32); Calcium, Blood 8.5 mg/dL (8.5-10.1); Chloride, Blood 98 mmol/L (98-108); Creatinine, Blood 6.65 mg/dL (0.60-1.20); Glucose, Blood 82 mg/dL (70-99); Magnesium, Blood 2.0 mg/dL (1.6-2.4); Phosphorus, Blood 7.2 mg/dL (2.5-4.9); Potassium, Blood 4.0 mmol/L (3.5-5.5); Sodium, Blood 130 mmol/L (136-145)
--- NOTE | 2025-08-19 16:27 | NUR ---
DISCHARGE NOTE PT PICKED UP VIA WHEELCHAIR TRANSPORT. IV REMOVED BY REGIONAL ENGINEER. REPORT CALLED TO ARMINDA AT [facility]. AT [place] AND AWARE OF DISCHARGE. NO BELONGINGS AT BEDSIDE TO GATHER. GAVE ORAL TYLENOL FOR CHRONIC NECK PAIN AND SCHEDULED KEPPRA PRIOR TO DC. NO NEW QUESTIONS OR CONCERNS UPON DISCHARGE. PACKET PROVIDED BY [employer] [facility] FACILITY AND SENT WITH TRANSPORTER.
[2025-08-19] MEDS ORDERED: LEVE500 PO (16:34)
[2025-08-20 13:52] LABS: KEPPRA (LEVETIRACETAM) 19.3 ug/mL (10.0-40.0)
== END 2025-08-19 15:48 ==
LOC: ER 10:09 → MEDS 10:10 → ENPENDDIS 08-19 14:08 → MEDS 08-19 15:48
PROVIDERS: Emergency Medicine; Student in an Organized Health Care Education/Training Program; ADMIT Internal Medicine
DX: G40.909 Epilepsy, unspecified, not intractable, without status epilepticus (principal); I12.0 Hypertensive chronic kidney disease with stage 5 chronic kidney disease or end stage renal disease; E11.22 Type 2 diabetes mellitus with diabetic chronic kidney disease; N18.6 End stage renal disease; D63.1 Anemia in chronic kidney disease; I48.0 Paroxysmal atrial fibrillation; E03.9 Hypothyroidism, unspecified; E87.1 Hypo-osmolality and hyponatremia; R54 Age-related physical debility; Z66 Do not resuscitate; Z79.01 Long term (current) use of anticoagulants; Z79.890 Hormone replacement therapy; Z79.899 Other long term (current) drug therapy; Z99.2 Dependence on renal dialysis; Z98.84 Bariatric surgery status
CPT/HCPCS: 36415; 51702; 70450; 80053; 80069; 80177; 81001; 83605; 83735; 84146; 85025; 85027; 93005; 93010; 96374; 99285-25; A9270; G0257; G0378; J1953; J7030

== ENCOUNTER 2025-08-29 00:48 | Emergency (ER) | payer OTHER ==
[~2025-08-29] VITALS: Ht 177.8 cm; Wt 116.1 kg
[~2025-08-29 00:48] MED LIST changes: +Acetaminophen650 M1 PO
[2025-08-29 01:08] LABS: BASOPHILS ABSOLUTE AUTO 0.03 K/mm3 (0.00-0.23); BASOPHILS PERCENT AUTO 1 % (0-2); EOSINOPHILS ABSOLUTE AUTO 0.16 K/mm3 (0.00-0.68); EOSINOPHILS PERCENT AUTO 4 % (0-6); Hematocrit 36.7 % (37.0-53.0); Hemoglobin 11.6 g/dL (13.5-17.5); IMMATURE GRAN ABSOLUTE AUTO 0.01 K/mm3 (0.00-0.10); IMMATURE GRAN PERCENT AUTO 0 % (0-1); LYMPHOCYTES ABSOLUTE AUTO 1.22 K/mm3 (0.84-5.20); LYMPHOCYTES PERCENT AUTO 27 % (21-46); MONOCYTES ABSOLUTE AUTO 0.60 K/mm3 (0.16-1.47); MONOCYTES PERCENT AUTO 13 % (4-13); Mean Corpuscular HGB Conc 31.6 g/dL (31.5-36.5); Mean Corpuscular Volume 94 fL (80-100); NEUTROPHILS ABSOLUTE AUTO 2.48 K/mm3 (1.96-9.15); NEUTROPHILS PERCENT AUTO 55 % (41-73); NRBC ABSOLUTE 0.00 K/mm3 (0.00-0.02); NRBC Auto 0.0 /100 WBC (0.0-0.2); Platelet Count 204 K/mm3 (150-400); RDW Coefficient Variation 15.5 % (11.7-14.2); RDW Standard Deviation 52.4 fL (35.1-46.3)
[2025-08-29 01:26] LABS: Alanine Aminotransfer (ALT/SGP 11.0 U/L (12-78); Albumin, Blood 3.0 g/dL (3.4-5.0); Albumin/Globulin Ratio 0.9 (0.8-1.8); Anion Gap 13.0 mmol/L (3-11); Aspartate Aminotrans (AST/SGOT 12.0 U/L (12-37); Bilirubin, Total 0.3 mg/dL (0.1-1.0); Blood Urea Nitrogen 37.0 mg/dL (8-24); CO2, Blood 27.0 mmol/L (21-32); Calcium, Blood 8.5 mg/dL (8.5-10.1); Chloride, Blood 96.0 mmol/L (98-108); Creatinine, Blood 5.42 mg/dL (0.60-1.20); Globulin, Blood 3.4 g/dL (2.2-4.0); Glucose, Blood 87.0 mg/dL (70-99); Potassium, Blood 4.0 mmol/L (3.5-5.5); Sodium, Blood 132.0 mmol/L (136-145); Total Protein, Blood 6.4 g/dL (6.4-8.2)
[2025-08-29] MEDS ORDERED: RX Prepack 2 Tabs Ondansetron ODT 4MG UD ONE (01:30)
[2025-08-29 04:44] VITALS: BP 138/82
== END 2025-08-29 04:46 | disposition home or self-care (01) ==
LOC: ER 00:48
PROVIDERS: Student in an Organized Health Care Education/Training Program
DX: S06.0X0A Concussion without loss of consciousness, initial encounter (principal); I12.0 Hypertensive chronic kidney disease with stage 5 chronic kidney disease or end stage renal disease; N18.6 End stage renal disease; Z99.2 Dependence on renal dialysis; W19.XXXA Unspecified fall, initial encounter; Z79.01 Long term (current) use of anticoagulants; Z79.899 Other long term (current) drug therapy
CPT/HCPCS: 70450; 80053; 85025; 93005; 93010; 99284-25